=== PATIENT | female | born 1945 | race Caucasian/White ===

== ENCOUNTER 2021-06-26 19:22 | Inpatient (IN) | payer BC, OTHER ==
[~2021-06-26] VITALS: Ht 160 cm; Wt 99.0 kg
[2021-06-26] MEDS ORDERED: cloNIDine HCL 0.1 MG TAB PO ONE (20:15)
[2021-06-26 20:37] LABS: Basophils # (auto) 0.1 10 ^3/uL (0-0.2); Basophils % (auto) 0.9 % (0.0-2.0); Eosinophils # (auto) 0.1 10 ^3/uL (0-0.8); Eosinophils % (auto) 1.2 % (0.0-7.0); Hematocrit 39.2 % (36.0-46.0); Hemoglobin 13.3 g/dL (12.2-16.2); Lymphocytes # (auto) 1.5 10 ^3/uL (0.4-5.4); Lymphocytes % (auto) 22.3 % (10.0-50.0); Mean Corpuscular Hemoglobin 32.3 pg (28.0-32.0); Mean Corpuscular Hgb Conc. 33.9 g/dL (32.0-36.0); Mean Corpuscular Volume 95.3 fL (80.0-100.0); Monocytes # (auto) 0.6 10 ^3/uL (0-1.3); Monocytes % (auto) 8.6 % (0.0-12.0); Neutrophils # (auto) 4.6 10 ^3/uL (1.6-8.6); Nucleated Red Blood Cells % 0.2 %; Red Blood Cells 4.12 10^6/uL (4.0-5.20); Red Cell Distribution Width 14.2 % (11.8-14.3); White Blood Cell 6.9 10^3/uL (4.4-10.8)
[2021-06-26] MEDS ORDERED: ONDANSETRON HCL 4 MG/2 ML VIAL IV ONE (20:45)
[2021-06-26] MEDS ORDERED: PANTOPRAZOLE 40 MG/10 ML VIAL INJ IV ONE (20:45)
[2021-06-26] MEDS ORDERED: MORPHINE SULFATE 4 MG/ML SYR/VIAL IV ONE (20:45)
[2021-06-26 20:57] LABS: Albumin 3.7 g/dL (3.4-5.0); Calcium 9.1 mg/dL (8.5-10.1); Magnesium 2.2 mg/dL (1.6-2.6); Potassium 4.1 mmol/L (3.5-5.1)
[2021-06-26 21:00] LABS: Bilirubin, Total 0.4 mg/dL (0.2-1.0); Total Protein 7.1 g/dL (6.4-8.2)
[2021-06-26 21:38] LABS: INR 0.95 (0.9-1.15); Partial Thromboplastin Time 24.8 sec (23.6-33.0)
[2021-06-26 21:42] LABS: Lactic Acid w/Reflex 2.5 mmol/L (0.4-2.0)
[2021-06-26] MEDS ORDERED: SODIUM CHLORIDE 0.9% 500 ML IV ONE (23:15)
[2021-06-27] MEDS ORDERED: MORPHINE SULFATE 4 MG/ML SYR/VIAL IV PRN (01:15)
[2021-06-27] MEDS ORDERED: MORPHINE SULFATE INJECTION 2 MG/ML SYRG IV PRN (01:15)
[2021-06-27] MEDS ORDERED: DEXTROSE (50%) 50ML SYRG IV PRN (01:15)
[2021-06-27] MEDS ORDERED: NITROGLYCERIN 0.4 MG SL TAB SL PRN (01:15)
[2021-06-27] MEDS ORDERED: ONDANSETRON HCL 4 MG/2 ML VIAL IV PRN (01:15)
[2021-06-27] MEDS: SOD CHL 0.45% 1,000 ML IV SCH ×2 (02:35→15:39)
[2021-06-27] MEDS: InsuLIN REG 1unit/0.01ml Soln (100units/ml) SC SCH ×4 (07:00→21:52)
[2021-06-27] MEDS: ACCU-CHEK COMFORT CURVE STRIP VI SCH ×4 (07:13→21:42)
[2021-06-27 07:15] VITALS: BP 132/78
[2021-06-27 08:44] LABS: Urine Bacteria NONE SEEN /hpf (None Seen); Urine Blood Negative /uL (Negative); Urine Mucus FEW (None Seen); Urine Specific Gravity 1.027 (1.001-1.035); Urine WBC 4 /hpf (0 - 5)
[2021-06-27 09:00] VITALS: BP 118/72
[2021-06-27 11:06] LABS: Basophils # (auto) 0 10 ^3/uL (0-0.2); Basophils % (auto) 0.5 % (0.0-2.0); Eosinophils # (auto) 0.1 10 ^3/uL (0-0.8); Eosinophils % (auto) 1.4 % (0.0-7.0); Hematocrit 34.8 % (36.0-46.0); Hemoglobin 11.9 g/dL (12.2-16.2); Lymphocytes # (auto) 1.7 10 ^3/uL (0.4-5.4); Lymphocytes % (auto) 24.7 % (10.0-50.0); Mean Corpuscular Hemoglobin 33.5 pg (28.0-32.0); Mean Corpuscular Hgb Conc. 34.3 g/dL (32.0-36.0); Mean Corpuscular Volume 97.5 fL (80.0-100.0); Monocytes # (auto) 0.5 10 ^3/uL (0-1.3); Monocytes % (auto) 7.2 % (0.0-12.0); Neutrophils # (auto) 4.5 10 ^3/uL (1.6-8.6); Neutrophils % (auto) 66.2 % (37.0-80.0); Nucleated Red Blood Cells % 0.1 %; Red Blood Cells 3.57 10^6/uL (4.0-5.20); Red Cell Distribution Width 13.9 % (11.8-14.3); White Blood Cell 6.7 10^3/uL (4.4-10.8)
[2021-06-27 11:13] LABS: Albumin 3.3 g/dL (3.4-5.0); Calcium 8.6 mg/dL (8.5-10.1); Potassium 3.7 mmol/L (3.5-5.1)
[2021-06-27 11:18] LABS: BUN/Creatinine Ratio 20.8; Bilirubin, Total 0.4 mg/dL (0.2-1.0); Total Protein 6.1 g/dL (6.4-8.2)
[2021-06-27] MEDS: FAMOTIDINE (10MG/ML) 2ML VL IV SCH ×2 (12:17→21:42)
[2021-06-27 13:00] VITALS: BP 142/93
[2021-06-27] MEDS: ACETAMINOPHEN 325 MG TAB PO PRN ×2 (16:52→23:08)
[2021-06-27 17:00] VITALS: BP 126/81
[2021-06-27 22:00] VITALS: BP 148/76
[2021-06-27] MEDS: SUCRALFATE 1 GM/10 ML ORAL SUSP PO SCH (22:55)
[2021-06-28] MEDS: SOD CHL 0.45% 1,000 ML IV SCH ×2 (03:29→06:52)
[2021-06-28 05:00] VITALS: BP 131/73
[2021-06-28] MEDS: ACCU-CHEK COMFORT CURVE STRIP VI SCH ×4 (06:04→21:20)
[2021-06-28] MEDS: InsuLIN REG 1unit/0.01ml Soln (100units/ml) SC SCH ×4 (06:05→21:28)
[2021-06-28] MEDS: SUCRALFATE 1 GM/10 ML ORAL SUSP PO SCH ×4 (06:06→21:20)
[2021-06-28 06:56] LABS: Basophils # (auto) 0 10 ^3/uL (0-0.2); Basophils % (auto) 0.7 % (0.0-2.0); Eosinophils # (auto) 0.1 10 ^3/uL (0-0.8); Hematocrit 37.5 % (36.0-46.0); Hemoglobin 12.9 g/dL (12.2-16.2); Lymphocytes # (auto) 1.5 10 ^3/uL (0.4-5.4); Lymphocytes % (auto) 26.8 % (10.0-50.0); Mean Corpuscular Hemoglobin 33.3 pg (28.0-32.0); Mean Corpuscular Hgb Conc. 34.5 g/dL (32.0-36.0); Mean Corpuscular Volume 96.5 fL (80.0-100.0); Monocytes # (auto) 0.4 10 ^3/uL (0-1.3); Monocytes % (auto) 6.4 % (0.0-12.0); Neutrophils # (auto) 3.6 10 ^3/uL (1.6-8.6); Neutrophils % (auto) 64.1 % (37.0-80.0); Nucleated Red Blood Cells % 0.2 %; Red Blood Cells 3.89 10^6/uL (4.0-5.20); White Blood Cell 5.6 10^3/uL (4.4-10.8)
[2021-06-28 07:14] LABS: Albumin 3.4 g/dL (3.4-5.0); BUN/Creatinine Ratio 19.1; Calcium 8.8 mg/dL (8.5-10.1)
[2021-06-28 07:17] LABS: Bilirubin, Total 0.4 mg/dL (0.2-1.0); Total Protein 6.3 g/dL (6.4-8.2)
[2021-06-28 09:00] VITALS: BP 133/86
[2021-06-28] MEDS: FAMOTIDINE (10MG/ML) 2ML VL IV SCH ×2 (09:42→21:20)
[2021-06-28 12:59] VITALS: BP 146/84
[2021-06-28] MEDS ORDERED: MIDAZOLAM HCL 5 MG/ML-1ML VIAL ONE (14:15)
[2021-06-28] MEDS ORDERED: LIDOCAINE VISCOUS 2% 15ML UD ONE (14:15)
[2021-06-28] MEDS ORDERED: SODIUM CHLORIDE LOCK 10 ML ONE (14:15)
[2021-06-28] MEDS ORDERED: fentaNYL CITRATE 100 MCG/2 ML VL ONE (14:16)
[2021-06-28] MEDS ORDERED: diphenhdrAMINE HCL 50 MG/1 ML VL ONE (14:16)
[2021-06-28] MEDS: LEVOTHYROXINE SODIUM 50 MCG TAB PO ONE ×2 (16:14→17:16)
[2021-06-28 17:00] VITALS: BP_SYST 134; BP_SYST 182; BP_DIAS 76; BP_DIAS 84
[2021-06-28] MEDS: hydrALAZINE HCL 20 MG/ML VL IV PRN (21:32)
[2021-06-28 22:00] VITALS: BP 151/84
[2021-06-29] MEDS: HYDROcodone-ACET 5/325MG TAB PO PRN ×2 (01:38→23:41)
[2021-06-29] MEDS: SOD CHL 0.45% 1,000 ML IV SCH (02:35)
[2021-06-29 05:00] VITALS: BP 156/84
[2021-06-29] MEDS: hydrALAZINE HCL 20 MG/ML VL IV PRN ×3 (05:18→16:52)
[2021-06-29] MEDS: ACETAMINOPHEN 325 MG TAB PO PRN ×2 (05:25→18:39)
[2021-06-29] MEDS: SUCRALFATE 1 GM/10 ML ORAL SUSP PO SCH ×2 (06:04→11:39)
[2021-06-29] MEDS: LEVOTHYROXINE SODIUM 100 MCG TAB PO SCH (06:04)
[2021-06-29] MEDS: LEVOTHYROXINE SODIUM 25 MCG TAB PO SCH (06:05)
[2021-06-29] MEDS: ACCU-CHEK COMFORT CURVE STRIP VI SCH ×4 (06:05→21:52)
[2021-06-29] MEDS: LEVOTHYROXINE SODIUM 50 MCG TAB PO SCH (06:05)
[2021-06-29] MEDS: InsuLIN REG 1unit/0.01ml Soln (100units/ml) SC SCH ×4 (06:06→22:17)
[2021-06-29 09:00] VITALS: BP 159/86
[2021-06-29] MEDS: FAMOTIDINE (10MG/ML) 2ML VL IV SCH (09:49)
[2021-06-29 13:00] VITALS: BP 184/87
[2021-06-29] MEDS ORDERED: NIFEdipine ER 30 MG TAB PO ONE (16:30)
[2021-06-29] MEDS ORDERED: LISINOPRIL 20 MG TAB PO ONE (16:45)
[2021-06-29 17:00] VITALS: BP 213/92
[2021-06-29] MEDS ORDERED: LEVO150T10 PO (17:55)
[2021-06-29] MEDS ORDERED: GLIM-5 PO (17:55)
[2021-06-29] MEDS ORDERED: ASPI-498 PO (17:55)
[2021-06-29] MEDS ORDERED: ATOR20TA PO (17:55)
[2021-06-29] MEDS ORDERED: TRAM50TA2 PO (17:55)
[2021-06-29] MEDS ORDERED: OME20GT PO (17:55)
[2021-06-29] MEDS ORDERED: FLUT250M2 INH (17:55)
[2021-06-29 21:51] VITALS: BP 150/73
[2021-06-29] MEDS: PANTOPRAZOLE 40 MG/10 ML VIAL INJ IV SCH (21:52)
[2021-06-30 04:59] VITALS: BP 134/88
[2021-06-30] MEDS: ACCU-CHEK COMFORT CURVE STRIP VI SCH ×2 (06:19→11:48)
[2021-06-30] MEDS: InsuLIN REG 1unit/0.01ml Soln (100units/ml) SC SCH ×2 (06:24→11:48)
[2021-06-30] MEDS: LEVOTHYROXINE SODIUM 100 MCG TAB PO SCH (06:26)
[2021-06-30] MEDS: LEVOTHYROXINE SODIUM 25 MCG TAB PO SCH (06:27)
[2021-06-30] MEDS: LEVOTHYROXINE SODIUM 50 MCG TAB PO SCH (06:27)
[2021-06-30 06:36] LABS: Calcium 9.4 mg/dL (8.5-10.1); Magnesium 2.2 mg/dL (1.6-2.6); Potassium 3.4 mmol/L (3.5-5.1)
[2021-06-30 06:39] LABS: BUN/Creatinine Ratio 16.9
[2021-06-30 09:00] VITALS: BP 157/78
[2021-06-30] MEDS: PANTOPRAZOLE 40 MG/10 ML VIAL INJ IV SCH ×2 (09:59→10:00)
[2021-06-30] MEDS ORDERED: LISINOPRIL 20 MG TAB PO SCH (10:00)
[2021-06-30] MEDS ORDERED: LISI20TA28 PO (10:39)
[2021-06-30] MEDS ORDERED: PANT40TA2 PO (10:39)
[2021-06-30] MEDS ORDERED: LEVO175T2 PO (10:39)
[2021-06-30] MEDS ORDERED: POTASSIUM CHL 20 Meq TABLET PO ONE (10:45)
[2021-06-30 13:10] VITALS: BP 154/81
[2021-06-30 16:00] VITALS: BP 154/81
[2021-06-30] MEDS ORDERED: PANTOPRAZOLE 40 MG TAB PO SCH (22:00)
== END 2021-06-30 16:48 | disposition home or self-care (01) | DRG 392 ==
LOC: EDBD 19:22 → ER 19:22 → TELE 06-27 01:01 → TELE-CENTR 06-27 06:58 → CENTRAL 06-30 10:45
PROVIDERS: ADMIT Nurse Practitioner Family; ATTEND Internal Medicine
PROC: 0DB68ZX Excision of Stomach, Via Natural or Artificial Opening Endoscopic, Diagnostic (ICD-10-PCS; 2021-06-28)
PROC: 0DB48ZX Excision of Esophagogastric Junction, Via Natural or Artificial Opening Endoscopic, Diagnostic (ICD-10-PCS; 2021-06-28)
PROC: 0DB98ZX Excision of Duodenum, Via Natural or Artificial Opening Endoscopic, Diagnostic (ICD-10-PCS; principal; 2021-06-28 14:11)
DX: K29.70 Gastritis, unspecified, without bleeding (principal); J98.11 Atelectasis; R16.0 Hepatomegaly, not elsewhere classified; E11.65 Type 2 diabetes mellitus with hyperglycemia; I10 Essential (primary) hypertension; K76.0 Fatty (change of) liver, not elsewhere classified; K21.9 Gastro-esophageal reflux disease without esophagitis; E66.9 Obesity, unspecified; E03.9 Hypothyroidism, unspecified; R07.89 Other chest pain; Z20.822 Contact with and (suspected) exposure to COVID-19; K44.9 Diaphragmatic hernia without obstruction or gangrene; E78.5 Hyperlipidemia, unspecified; E87.6 Hypokalemia; I25.2 Old myocardial infarction; Z68.38 Body mass index [BMI] 38.0-38.9, adult; Z80.9 Family history of malignant neoplasm, unspecified; Z82.49 Family history of ischemic heart disease and other diseases of the circulatory system; Z83.3 Family history of diabetes mellitus; Z90.710 Acquired absence of both cervix and uterus; Z91.14 Patient's other noncompliance with medication regimen; Z90.49 Acquired absence of other specified parts of digestive tract
CPT/HCPCS: 36415; 43239; 71045; 74176; 80048; 80053; 80061; 81001; 82150; 82962; 83036; 83605; 83690; 83735; 84443; 84484; 85025; 85610; 85730; 86850; 86900; 86901; 87040; 87426; 93005; 93306; 96372; 96374; 96375; 97110; 97116; 97530; C9113; G0378; J1815; J2250; J2405; J3490

== ENCOUNTER 2022-10-01 16:50 | Emergency (ER) | payer BC ==
[~2022-10-01] VITALS: Ht 157.5 cm; Wt 85.9 kg
[~2022-10-01 16:50] MED LIST: ATOR20TA PO; FLUT250M2 INH; GLIM-5 PO; PANT40TA2 PO; TRAM50TA2 PO
[2022-10-01 18:43] VITALS: BP 151/67
[2022-10-01 19:28] LABS: Basophils # (auto) 0.1 10 ^3/uL (0-0.2); Basophils % (auto) 0.6 % (0.0-2.0); Eosinophils # (auto) 0.1 10 ^3/uL (0-0.8); Eosinophils % (auto) 1.1 % (0.0-7.0); Hematocrit 43.4 % (36.0-46.0); Hemoglobin 14.7 g/dL (12.2-16.2); Lymphocytes % (auto) 25.3 % (10.0-50.0); Mean Corpuscular Hemoglobin 30.9 pg (28.0-32.0); Mean Corpuscular Hgb Conc. 33.8 g/dL (32.0-36.0); Mean Corpuscular Volume 91.3 fL (80.0-100.0); Monocytes # (auto) 0.6 10 ^3/uL (0-1.3); Monocytes % (auto) 7.8 % (0.0-12.0); Neutrophils # (auto) 5.2 10 ^3/uL (1.6-8.6); Neutrophils % (auto) 65.2 % (37.0-80.0); Nucleated Red Blood Cells % 0.1 %; Red Blood Cells 4.75 10^6/uL (4.0-5.20); Red Cell Distribution Width 13.2 % (11.8-14.3)
[2022-10-01 19:56] LABS: Urine Bacteria NONE SEEN /hpf (None Seen); Urine Blood Negative /uL (Negative); Urine Specific Gravity 1.037 (1.001-1.035); Urine WBC 3 /hpf (0 - 5)
== END 2022-10-01 20:19 | disposition home or self-care (01) ==
LOC: ER 16:54
DX: K64.9 Unspecified hemorrhoids (principal); I10 Essential (primary) hypertension; E11.9 Type 2 diabetes mellitus without complications; E78.5 Hyperlipidemia, unspecified; E03.9 Hypothyroidism, unspecified; Z79.899 Other long term (current) drug therapy
CPT/HCPCS: 36415; 81001; 85025

== ENCOUNTER 2022-12-30 08:21 | Inpatient (IN) | payer BC, OTHER ==
[~2022-12-30] VITALS: Ht 160 cm; Wt 90.1 kg
[2022-12-30] MEDS ORDERED: PANTOPRAZOLE 40 MG/10 ML VIAL INJ IV ONE (09:15)
[2022-12-30 09:21] LABS: Basophils # (auto) 0.1 10 ^3/uL (0-0.2); Basophils % (auto) 0.7 % (0.0-2.0); Eosinophils # (auto) 0.1 10 ^3/uL (0-0.8); Hematocrit 43.7 % (36.0-46.0); Hemoglobin 14.8 g/dL (12.2-16.2); Lymphocytes # (auto) 1.8 10 ^3/uL (0.4-5.4); Lymphocytes % (auto) 20.6 % (10.0-50.0); Mean Corpuscular Hemoglobin 30.6 pg (28.0-32.0); Mean Corpuscular Hgb Conc. 33.9 g/dL (32.0-36.0); Mean Corpuscular Volume 90.4 fL (80.0-100.0); Monocytes # (auto) 0.8 10 ^3/uL (0-1.3); Monocytes % (auto) 8.9 % (0.0-12.0); Neutrophils # (auto) 6.1 10 ^3/uL (1.6-8.6); Neutrophils % (auto) 68.8 % (37.0-80.0); Red Blood Cells 4.83 10^6/uL (4.0-5.20); Red Cell Distribution Width 13.7 % (11.8-14.3); White Blood Cell 8.9 10^3/uL (4.4-10.8)
[2022-12-30 09:36] LABS: INR 0.93 (0.9-1.15); Partial Thromboplastin Time 27.6 sec (24.6-33.4)
[2022-12-30 10:03] LABS: Albumin 4.1 g/dL (3.4-5.0); Calcium 9.3 mg/dL (8.5-10.1); Potassium 3.5 mmol/L (3.5-5.1)
[2022-12-30 10:07] LABS: BUN/Creatinine Ratio 25.4 (10.0-20.0); Bilirubin, Total 0.5 mg/dL (0.2-1.0); Total Protein 7.2 g/dL (6.4-8.2)
[2022-12-30] MEDS ORDERED: ACETAMINOPHEN 325 MG TAB PO ONE (13:30)
[2022-12-30 14:50] LABS: Urine Bacteria NONE SEEN /hpf (None Seen); Urine Blood 3+ /uL (Negative); Urine WBC 9 /hpf (0 - 5)
[2022-12-30] MEDS ORDERED: MORPHINE SULFATE INJ 2 MG/ml SYRG IV PRN (15:00)
[2022-12-30] MEDS ORDERED: DEXTROSE (50%) 50ML SYRG IV PRN (15:00)
[2022-12-30] MEDS ORDERED: ONDANSETRON HCL 4 MG/2 ML VIAL IV PRN (15:00)
[2022-12-30 18:15] LABS: Hematocrit 42.8 % (36.0-46.0); Hemoglobin 14.3 g/dL (12.2-16.2)
[2022-12-30] MEDS: ACCU-CHEK COMFORT CURVE STRIP VI SCH ×2 (20:33→23:25)
[2022-12-30] MEDS: InsuLIN REG 1unit/0.01ml Soln (100units/ml) SC SCH ×2 (20:33→23:23)
[2022-12-30] MEDS: HYDROcodone-ACET 5/325MG TAB PO PRN (20:41)
[2022-12-30] MEDS: ATORVASTATIN 20 MG TAB PO SCH (23:22)
[2022-12-30] MEDS: SODIUM CHLORIDE 0.9% 1,000 ML IV SCH (23:24)
[2022-12-31 00:44] LABS: Hematocrit 36.7 % (36.0-46.0); Hemoglobin 12.6 g/dL (12.2-16.2)
[2022-12-31] MEDS: SODIUM CHLORIDE 0.9% 1,000 ML IV SCH ×3 (01:38→21:00)
[2022-12-31] MEDS: HYDROcodone-ACET 5/325MG TAB PO PRN (03:22)
[2022-12-31] MEDS: InsuLIN REG 1unit/0.01ml Soln (100units/ml) SC SCH ×4 (06:41→21:53)
[2022-12-31] MEDS: ACCU-CHEK COMFORT CURVE STRIP VI SCH ×4 (06:43→21:54)
[2022-12-31 06:44] LABS: Basophils # (auto) 0 10 ^3/uL (0-0.2); Basophils % (auto) 0.4 % (0.0-2.0); Eosinophils # (auto) 0.1 10 ^3/uL (0-0.8); Eosinophils % (auto) 1.6 % (0.0-7.0); Hematocrit 36.3 % (36.0-46.0); Hemoglobin 12.4 g/dL (12.2-16.2); Lymphocytes # (auto) 1.6 10 ^3/uL (0.4-5.4); Lymphocytes % (auto) 26.7 % (10.0-50.0); Mean Corpuscular Hemoglobin 30.7 pg (28.0-32.0); Mean Corpuscular Hgb Conc. 34.1 g/dL (32.0-36.0); Mean Corpuscular Volume 89.8 fL (80.0-100.0); Monocytes # (auto) 0.6 10 ^3/uL (0-1.3); Monocytes % (auto) 10.5 % (0.0-12.0); Neutrophils # (auto) 3.7 10 ^3/uL (1.6-8.6); Neutrophils % (auto) 60.8 % (37.0-80.0); Nucleated Red Blood Cells % 0.1 %; Potassium 3.3 mmol/L (3.5-5.1); Red Blood Cells 4.04 10^6/uL (4.0-5.20); Red Cell Distribution Width 13.5 % (11.8-14.3)
[2022-12-31 06:54] LABS: Albumin 3.4 g/dL (3.4-5.0); BUN/Creatinine Ratio 25.5 (10.0-20.0); Bilirubin, Total 0.5 mg/dL (0.2-1.0); Total Protein 5.9 g/dL (6.4-8.2)
[2022-12-31 10:00] VITALS: BP 117/87
[2022-12-31] MEDS: PANTOPRAZOLE 40 MG/10 ML VIAL INJ IV SCH (10:04)
[2022-12-31 10:25] LABS: Hematocrit 39.4 % (36.0-46.0); Hemoglobin 13.4 g/dL (12.2-16.2)
[2022-12-31 11:19] VITALS: BP 145/70
[2022-12-31 13:27] VITALS: BP 145/70
[2022-12-31 16:36] LABS: Hematocrit 35.9 % (36.0-46.0); Hemoglobin 12.5 g/dL (12.2-16.2)
[2022-12-31 17:00] VITALS: BP 140/66
[2022-12-31] MEDS: ATORVASTATIN 20 MG TAB PO SCH (21:50)
[2022-12-31 22:00] VITALS: BP 133/62
[2023-01-01] VITALS (8 sets, daily range): BP systolic 112–173; BP diastolic 52–87
[2023-01-01] MEDS: SODIUM CHLORIDE 0.9% 1,000 ML IV SCH ×2 (04:32→16:40)
[2023-01-01] MEDS: InsuLIN REG 1unit/0.01ml Soln (100units/ml) SC SCH ×4 (06:26→21:24)
[2023-01-01] MEDS: ACCU-CHEK COMFORT CURVE STRIP VI SCH ×4 (06:26→21:24)
[2023-01-01] MEDS: PANTOPRAZOLE 40 MG/10 ML VIAL INJ IV SCH (10:51)
[2023-01-01] MEDS ORDERED: GOLYTELY 4L KIT PO ONE (12:45)
[2023-01-01] MEDS ORDERED: cloNIDine HCL 0.1 MG TAB PO ONE (15:15)
[2023-01-01] MEDS: HYDROcodone-ACET 5/325MG TAB PO PRN (15:46)
[2023-01-01] MEDS ORDERED: fentaNYL CITRATE 100 MCG/2 ML VL ONE (16:35)
[2023-01-01] MEDS ORDERED: FLUMAZENIL 0.1 MG/ML INJ 10ML MDV IV ONE (16:35)
[2023-01-01] MEDS ORDERED: NALOXONE HCL 0.4 MG/ML VIAL ONE (16:35)
[2023-01-01] MEDS ORDERED: diphenhdrAMINE HCL 50 MG/1 ML VL ONE (16:37)
[2023-01-01] MEDS: MIDAZOLAM HCL 2MG/2ML 2ml VIAL (1mg/ml) ONE ×2 (17:23→17:31)
[2023-01-01] MEDS: ATORVASTATIN 20 MG TAB PO SCH (21:20)
[2023-01-02] MEDS: SODIUM CHLORIDE 0.9% 1,000 ML IV SCH ×3 (01:57→23:00)
[2023-01-02 05:00] VITALS: BP 113/58
[2023-01-02] MEDS: ACCU-CHEK COMFORT CURVE STRIP VI SCH ×4 (06:34→21:29)
[2023-01-02] MEDS: InsuLIN REG 1unit/0.01ml Soln (100units/ml) SC SCH ×4 (06:34→21:27)
[2023-01-02 08:00] VITALS: BP 141/61
[2023-01-02] MEDS: HYDROcodone-ACET 5/325MG TAB PO PRN (08:16)
[2023-01-02] MEDS: PANTOPRAZOLE 40 MG/10 ML VIAL INJ IV SCH (08:17)
[2023-01-02 09:00] VITALS: BP 141/61
[2023-01-02 13:00] VITALS: BP 105/45
[2023-01-02 17:00] VITALS: BP 149/70
[2023-01-02] MEDS: ATORVASTATIN 20 MG TAB PO SCH (21:26)
[2023-01-02 22:00] VITALS: BP 157/69
[2023-01-03 05:00] VITALS: BP 123/60
[2023-01-03] MEDS: InsuLIN REG 1unit/0.01ml Soln (100units/ml) SC SCH ×2 (06:04→11:30)
[2023-01-03] MEDS: ACCU-CHEK COMFORT CURVE STRIP VI SCH ×2 (06:08→11:30)
[2023-01-03] MEDS: SODIUM CHLORIDE 0.9% 1,000 ML IV SCH (09:00)
[2023-01-03] MEDS: PANTOPRAZOLE 40 MG/10 ML VIAL INJ IV SCH (09:34)
== END 2023-01-03 11:55 | disposition home or self-care (01) | DRG 374 ==
LOC: ER 08:21 → OVERFLOW 15:01 → CENTRAL 12-31 10:42
PROVIDERS: ADMIT Nurse Practitioner Family; ATTEND Family Medicine
PROC: 0DBP8ZX Excision of Rectum, Via Natural or Artificial Opening Endoscopic, Diagnostic (ICD-10-PCS; principal; 2023-01-01 17:16)
DX: C20 Malignant neoplasm of rectum (principal); K57.31 Diverticulosis of large intestine without perforation or abscess with bleeding; E89.0 Postprocedural hypothyroidism; I10 Essential (primary) hypertension; K76.0 Fatty (change of) liver, not elsewhere classified; N20.0 Calculus of kidney; D17.71 Benign lipomatous neoplasm of kidney; E11.9 Type 2 diabetes mellitus without complications; E78.00 Pure hypercholesterolemia, unspecified; Z90.49 Acquired absence of other specified parts of digestive tract; Z82.49 Family history of ischemic heart disease and other diseases of the circulatory system; Z83.3 Family history of diabetes mellitus; Z85.42 Personal history of malignant neoplasm of other parts of uterus; Z87.442 Personal history of urinary calculi; Z90.710 Acquired absence of both cervix and uterus; Z80.3 Family history of malignant neoplasm of breast
CPT/HCPCS: 36415; 45380; 71045; 74176; 80053; 81001; 82962; 83036; 83690; 85014; 85018; 85025; 85610; 85730; 86850; 86900; 86901; 93005; 96374; C9113; G0378; J1815; J2250

== ENCOUNTER 2023-01-17 08:50 | Emergency (ER) | payer BC, OTHER | END 2023-01-17 09:50 | disposition left against medical advice (07) | LOC: ER 08:50 | DX: K62.5 Hemorrhage of anus and rectum (principal); Z53.21 Procedure and treatment not carried out due to patient leaving prior to being seen by health care provider ==

== ENCOUNTER 2023-12-12 11:05 | Inpatient (IN) | payer OTHER ==
[~2023-12-12] VITALS: Ht 154.9 cm; Wt 98.0 kg
[~2023-12-12 11:05] MED LIST changes: +GLIM-38 PO; -GLIM-5 PO
[2023-12-12 12:08] LABS: Hematocrit 33.5 % (36.0-46.0); Hemoglobin 11.5 g/dL (12.2-16.2); Mean Corpuscular Hemoglobin 31.6 pg (28.0-32.0); Mean Corpuscular Hgb Conc. 34.3 g/dL (32.0-36.0); Mean Corpuscular Volume 92.2 fL (80.0-100.0); Red Blood Cells 3.63 10^6/uL (4.0-5.20); Red Cell Distribution Width 14.9 % (11.8-14.3); White Blood Cell 3.4 10^3/uL (4.4-10.8)
[2023-12-12 12:13] LABS: Basophils % (manual) 0 (0.0-2.0); Blast Cells 0; Eosinophils % (manual) 0 (0-7); Metamyelocytes % 0; Myelocytes % 0; Promyelocytes % 0; Reactive Lymphocytes 0
[2023-12-12 12:15] LABS: Chloride 104 mmol/L (98-107); Potassium 3.2 mmol/L (3.5-5.1); Sodium 138 mmol/L (136-145)
[2023-12-12 12:16] LABS: Anion Gap 8 (5-15); Carbon Dioxide 26 mmol/L (20-30)
[2023-12-12 12:17] LABS: Calcium 8.8 mg/dL (8.5-10.1)
[2023-12-12 12:22] LABS: BUN/Creatinine Ratio 16.7 (10.0-20.0); Blood Urea Nitrogen 10 mg/dL (9-23); Glucose 136 mg/dL (74-106)
[2023-12-12 13:36] LABS: Band Neutrophils % (manual) 8; Lymphocytes % (manual) 5 (10.0-50.0)
[2023-12-12 13:37] LABS: Monocytes % (manual) 21 (0-12); Platelet Estimate Adequate; RBC Morphology Normal
[2023-12-12] MEDS ORDERED: ONDANSETRON HCL 4 MG/2 ML VIAL IV PRN (14:45)
[2023-12-12] MEDS ORDERED: DOCUSATE SOD 100 MG CAP PO PRN (14:45)
[2023-12-12] MEDS ORDERED: MORPHINE SULFATE INJ 2 MG/ml SYRG IV PRN (14:45)
[2023-12-12] MEDS ORDERED: NITROGLYCERIN 0.4 MG SL TAB SL PRN (14:45)
[2023-12-12] MEDS ORDERED: HYDROcodone-ACET 5/325MG TAB PO PRN (14:45)
[2023-12-12] MEDS ORDERED: DEXTROSE (50%) 50ML SYRG IV PRN (14:45)
[2023-12-12] MEDS ORDERED: LISI20TA56 PO (14:46)
[2023-12-12] MEDS ORDERED: LEVO125T7 PO (14:46)
[2023-12-12] MEDS ORDERED: HYDR12.55 PO (14:46)
[2023-12-12] MEDS ORDERED: METF-1145 PO (14:46)
[2023-12-12] MEDS ORDERED: EMPA1TAB3 PO (14:46)
[2023-12-12] MEDS ORDERED: ATOR20TA50 PO (14:46)
[2023-12-12 18:41] LABS: Urine Bacteria None Seen /hpf (None Seen)
[2023-12-12 18:49] LABS: Urine Blood 1+ /uL (Negative); Urine Clarity Turbid (Clear); Urine Color Colorless (Yellow); Urine Mucus FEW (None Seen); Urine Protein, UAD TRACE (Negative); Urine Specific Gravity 1.034 (1.001-1.035); Urine Urobilinogen Normal (Negative); Urine WBC 141 /hpf (0 - 5)
[2023-12-12] MEDS: PANTOPRAZOLE 40 MG/10 ML VIAL INJ IV ONE (20:05)
[2023-12-12] MEDS: POTASSIUM EFFERVESENT TAB 25 MEQ PO ONE (20:05)
[2023-12-12] MEDS: cefTRIAXone 1GM/50ML D5W 50 ML IV ONE (20:06)
[2023-12-12] MEDS: SODIUM CHLORIDE 0.9% 1,000 ML IV ONE ×2 (20:10→20:31)
[2023-12-12] MEDS: InsuLIN REG 1unit/0.01ml Soln (100units/ml) SC SCH (20:13)
[2023-12-12] MEDS: ACCU-CHEK COMFORT CURVE STRIP VI SCH (20:13)
[2023-12-12 20:21] VITALS: PULSE 75; RESP 16; O2SAT 93
[2023-12-12] MEDS: MORPHINE SULFATE INJ 2 MG/ml SYRG IV PRN (23:04)
[2023-12-13] VITALS (9 sets, daily range): BP systolic 95–140; BP diastolic 45–64; PULSE 59–71; RESP 16–18; TEMP 97.4–98.6; O2SAT 90–98
[2023-12-13] MEDS ORDERED: GABA-1308 PO (04:00)
[2023-12-13 06:04] LABS: Hematocrit 31.1 % (36.0-46.0); Hemoglobin 10.6 g/dL (12.2-16.2); Mean Corpuscular Hemoglobin 31.7 pg (28.0-32.0); Mean Corpuscular Volume 93.2 fL (80.0-100.0); Red Blood Cells 3.34 10^6/uL (4.0-5.20); White Blood Cell 3.2 10^3/uL (4.4-10.8)
[2023-12-13 06:18] LABS: Alanine Aminotransferase 15 U/L (7-40); Albumin 3.4 g/dL (3.2-4.8); Alkaline Phosphatase 96 U/L (46-116); Anion Gap 11 (5-15); Aspartate Aminotransferase 20 U/L (13-40); Bilirubin, Total 0.4 mg/dL (0.2-1.0); Calcium 8.4 mg/dL (8.5-10.1); Carbon Dioxide 22 mmol/L (20-30); Chloride 106 mmol/L (98-107); Glucose 99 mg/dL (74-106); Potassium 2.7 mmol/L (3.5-5.1); Sodium 139 mmol/L (136-145); Total Protein 5.2 g/dL (5.7-8.2)
[2023-12-13 06:19] LABS: BUN/Creatinine Ratio 10.9 (10.0-20.0); Blood Urea Nitrogen < 5 mg/dL (9-23)
[2023-12-13 06:23] LABS: Red Cell Distribution Width 23.9 % (11.8-14.3)
[2023-12-13 06:24] LABS: Band Neutrophils % (manual) 0; Basophils % (manual) 0 (0.0-2.0); Blast Cells 0; Metamyelocytes % 0; Myelocytes % 0; Promyelocytes % 0; Reactive Lymphocytes 0
[2023-12-13] MEDS: LEVOTHYROXINE SODIUM 100 MCG TAB PO SCH (06:44)
[2023-12-13] MEDS: LEVOTHYROXINE SODIUM 25 MCG TAB PO SCH (06:55)
[2023-12-13 08:59] LABS: Eosinophils % (manual) 1 (0-7); Lymphocytes % (manual) 5 (10.0-50.0); Monocytes % (manual) 19 (0-12)
[2023-12-13 09:00] LABS: Platelet Estimate Adequate
[2023-12-13] MEDS: cefTRIAXone 1GM/50ML D5W 50 ML IV SCH (10:00)
[2023-12-13] MEDS: PANTOPRAZOLE 40 MG/10 ML VIAL INJ IV SCH (10:02)
[2023-12-13] MEDS: ATORVASTATIN 20 MG TAB PO SCH (10:03)
[2023-12-13] MEDS: LISINOPRIL 20 MG TAB PO SCH (10:04)
[2023-12-13] MEDS: hydroCHLOROthiazide 25 MG TAB PO SCH (10:04)
[2023-12-13] MEDS: ACETAMINOPHEN 325 MG TAB PO PRN (10:15)
[2023-12-13] MEDS: SOD CHL 0.9%/ KCL 40MEQ 1,000 ML IV SCH (10:30)
[2023-12-13] MEDS: metroNIDAZOLE 500MG/100ML 100 ML IV SCH (14:00)
[2023-12-14] VITALS (7 sets, daily range): BP systolic 114–141; BP diastolic 53–69; PULSE 55–75; RESP 16–19; TEMP 97.6–98.2; O2SAT 90–95
[2023-12-14 11:48] LABS: Hematocrit 31.7 % (36.0-46.0); Hemoglobin 10.6 g/dL (12.2-16.2); Mean Corpuscular Hgb Conc. 33.5 g/dL (32.0-36.0); Mean Corpuscular Volume 92.8 fL (80.0-100.0); Red Blood Cells 3.42 10^6/uL (4.0-5.20); White Blood Cell 2.5 10^3/uL (4.4-10.8)
[2023-12-14 11:53] LABS: Basophils % (manual) 0 (0.0-2.0); Blast Cells 0; Metamyelocytes % 0; Myelocytes % 0; Promyelocytes % 0
[2023-12-14 12:04] LABS: Chloride 108 mmol/L (98-107); Potassium 3.4 mmol/L (3.5-5.1); Sodium 141 mmol/L (136-145)
[2023-12-14 12:05] LABS: Anion Gap 5 (5-15); Carbon Dioxide 28 mmol/L (20-30)
[2023-12-14 12:10] LABS: Glucose 150 mg/dL (74-106)
[2023-12-14 12:11] LABS: BUN/Creatinine Ratio 14.5 (10.0-20.0); Blood Urea Nitrogen 8 mg/dL (9-23)
[2023-12-14 12:30] LABS: Magnesium 1.7 mg/dL (1.6-2.6)
[2023-12-14 14:24] LABS: Anisocytosis Slight; Band Neutrophils % (manual) 11; Eosinophils % (manual) 1 (0-7); Lymphocytes % (manual) 10 (10.0-50.0); Monocytes % (manual) 7 (0-12); Reactive Lymphocytes 3
[2023-12-14 14:25] LABS: Platelet Estimate Adequate
[2023-12-15] VITALS (8 sets, daily range): BP systolic 108–137; BP diastolic 63–95; PULSE 60–73; RESP 16–19; TEMP 97.5–98.4; O2SAT 92–95
[2023-12-15] MEDS: LOPERAMIDE HCL 2 MG CAP/TAB PO PRN (09:07)
[2023-12-15] MEDS: CHOLESTYRAMINE 4 GM POWDER GT SCH (11:09)
[2023-12-15] MEDS: FLUCONAZOLE 100 MG TAB PO ONE (15:09)
[2023-12-16 01:00] VITALS: BP 129/66; PULSE 62; RESP 18; TEMP 97.5; O2SAT 94
[2023-12-16 05:00] VITALS: BP 139/76; PULSE 61; RESP 18; TEMP 97.8; O2SAT 93
[2023-12-16 06:26] LABS: Anion Gap 9 (5-15); Carbon Dioxide 22 mmol/L (20-30); Chloride 111 mmol/L (98-107); Potassium 4.2 mmol/L (3.5-5.1); Sodium 142 mmol/L (136-145)
[2023-12-16 06:27] LABS: Calcium 9.3 mg/dL (8.5-10.1)
[2023-12-16 06:32] LABS: BUN/Creatinine Ratio 10.2 (10.0-20.0); Blood Urea Nitrogen < 5 mg/dL (9-23); Glucose 113 mg/dL (74-106)
[2023-12-16 08:00] VITALS: BP 140/71; PULSE 58; RESP 16; RESP 19; TEMP 98.3; O2SAT 92; O2SAT 97
[2023-12-16] MEDS ORDERED: SOD CHL 0.9%/ KCL 40MEQ 1,000 ML IV SCH (11:00)
[2023-12-16] MEDS ORDERED: LOP2C PO (11:21)
[2023-12-16] MEDS ORDERED: CHL4PW GT (11:21)
[2023-12-16] MEDS ORDERED: METR-344 PO (11:22)
[2023-12-16] MEDS ORDERED: LEVO500T91 PO (11:22)
[2023-12-16 12:00] VITALS: BP 148/92; PULSE 68; RESP 18; TEMP 97.8; O2SAT 92
[2023-12-16 12:02] VITALS: BP 138/90; PULSE 68; RESP 18; TEMP 36.8; O2SAT 92
== END 2023-12-16 14:50 | disposition home or self-care (01) | DRG 392 ==
LOC: ER 11:05 → TELE 14:45 → TELE-EAST 22:02 → EAST 12-14 12:34
PROVIDERS: ADMIT Nurse Practitioner Family; ATTEND Nurse Practitioner Acute Care
DX: K52.9 Noninfective gastroenteritis and colitis, unspecified (principal); E11.9 Type 2 diabetes mellitus without complications; E78.5 Hyperlipidemia, unspecified; E87.6 Hypokalemia; I10 Essential (primary) hypertension; D72.819 Decreased white blood cell count, unspecified; E66.9 Obesity, unspecified; E03.9 Hypothyroidism, unspecified; Z90.49 Acquired absence of other specified parts of digestive tract; Z85.038 Personal history of other malignant neoplasm of large intestine; Z79.899 Other long term (current) drug therapy; Z83.3 Family history of diabetes mellitus; Z82.49 Family history of ischemic heart disease and other diseases of the circulatory system; Z85.42 Personal history of malignant neoplasm of other parts of uterus; Z86.73 Personal history of transient ischemic attack (TIA), and cerebral infarction without residual deficits; Z68.36 Body mass index [BMI] 36.0-36.9, adult
CPT/HCPCS: 36415; 71045; 71046; 74176; 80048; 80053; 81001; 82378; 82962; 83735; 84443; 84484; 85007; 85027; 87045; 87086; 87088; 87186; 87427; 87493; 93005; 97163; 99291; C9113; G0378; J1815; J3490

== ENCOUNTER 2024-09-29 23:12 | Emergency (ER) | payer OTHER ==
[~2024-09-29] VITALS: Ht 160 cm; Wt 72.7 kg
[~2024-09-29 23:12] MED LIST changes: -ATOR20TA PO; +ATOR20TA50 PO; +BACL5TAB2 PO; +CHL4PW GT; +EMPA1TAB3 PO; +GABA-1308 PO; -GLIM-38 PO; +HYDR12.55 PO; +LEVO500T91 PO; +LEVO50TA7 PO; +LISI20TA56 PO; +LOPE2CAP16 PO; +METF-1145 PO; +POM; +TAMS0.4C39 PO; -TRAM50TA2 PO
--- NOTE | 2024-09-29 23:44 | ED.PDOC ---
GI ASSESSMENT HPI Comments 79-year-old female came to emergency room via EMS for nausea and vomiting. Patient has history of hypertension, diabetes, and colon cancer. For the past hour, has been having epigastric abdominal constant pain, associated bouts of nausea vomiting and diarrhea. Patient started becoming weak and dizzy, patient was given Zofran by paramedics while en route to the ER. Chief Complaint: Nausea/Vomiting Time Seen by MD: 23:43 Primary Care Provider: BAKARI Reviewed Notes: Nurses Notes Allergies: Coded Allergies: NO KNOWN ALLERGIES (Unverified , 06/26/21) Home Meds Active Scripts Tamsulosin Hcl (Tamsulosin Hcl) 0.4 Mg Cap, 1 CAP PO DAILY, #30 CAP 0 Refills Prov:ANY KHAN MD 09/20/24 Baclofen (Baclofen) 5 Mg Tab, 5 MG PO HS for 4 Days, #4 TAB 0 Refills Prov:ANY KHAN MD 09/20/24 Levofloxacin Hemihydrate (LEVAQUIN 500 MG) 500 Mg Tab, 1 TAB PO DAILY for 7 Days, #7 TAB Prov:DOUGLAS TINOCO RAND SEWER 12/16/23 Loperamide Hcl (Imodium) 2 Mg Cp, 2 MG PO PRN PRN for 7 Days, #14 CAP Prov:DOUGLAS TINOCO RAND SEWER 12/16/23 Cholestyramine (QUESTRAN POWDER) 4 Gm Pw, 4 GM GT DAILY@11 for 7 Days, #7 POW Stop when BMs are regular Prov:DOUGLAS TINOCO RAND SEWER 12/16/23 Pantoprazole Sodium Sesquihydr (Protonix) 40 Mg Tab, 40 MG PO BID for 30 Days, #60 TAB Prov:YEFRI BAÑUELOS MD 06/30/21 Reported Medications Levothyroxine Sodium (Levothyroxine Sodium) 50 Mcg Tab, 75 MCG PO QAM for 30 Days, MCG 09/20/24 Patients Own Medication (PATIENTS OWN MEDICATION) . PTS OWN MED-OBTAIN FROM PT AND SEND TO RX DRUG: FREQ: RX# EXP: DATE DISP: TECH: RPH: 09/20/24 Gabapentin (Gabapentin) 100 Mg Cap, 100 MG PO HS for 30 Days, MG 12/13/23 Lisinopril (Lisinopril) 20 Mg Tab, 1 TAB PO DAILY 12/12/23 Empagliflozin (Jardiance) 25 Mg Tab, 1 TAB PO DAILY 12/12/23 Atorvastatin Calcium (ATORVASTATIN CALCIUM) 20 Mg Tab, 1 TAB PO DAILY 12/12/23 Hydrochlorothiazide (Hydrochlorothiazide) 12.5 Mg Tab, 1 TAB PO DAILY 12/12/23 Metformin Hydrochloride (Metformin Hcl Er) 500 Mg Tab, 1 TAB PO BID 12/12/23 Fluticasone-Salmeterol (Advair Diskus 250/50) 1 Puff Ih, 1 PUFF INH BID PRN for SHORTNESS OF BREATH 06/29/21 Information Source: Patient, Emergency Med Personnel Mode of Arrival: EMS Timing: Hours Duration: Since onset Prehospital treatment: None Quality: Aching, Cramping Vomitus: Watery Stool: Loose, Watery Severity: Moderate Recent: Possible spoiled food Recent Hx of: None Pain Location: Epigastric Associated sign and symptoms: Nausea, Vomiting, Diarrhea, Abdominal Pain Past Medical History PAST MEDICAL HISTORY: Cancer (Colorectal cancer), DM, High Lipids, HTN, Kidney Stones, Thyroid Surgical History: Appendectomy, Cholecystectomy, Hernia Repair, Hysterectomy, Thyroidectomy, Tonsillectomy LOAN AUDITOR History: No Pertinent LOAN AUDITOR History Family History Family History: Family hx of DM, Family hx of Cancer, Family hx of heart stan, Family hx of HTN Social History Smoker: Non-Smoker Alcohol: Denies ETOH Use Drugs: Denies Drug Use Lives In: Home Constitutional: denies: chills, diaphoresis, fatigue, fever, malaise, sweats, weakness, others EENTM: denies: blurred vision, double vision, ear bleeding, ear discharge, ear drainage, ear pain, ear ringing, eye pain, eye redness, hearing loss, mouth pain, mouth swelling, nasal discharge, nose bleeding, nose congestion, nose pain, photophobia, tearing, throat pain, throat swelling, voice changes, others Respiratory: denies: cough, hemoptysis, orthopnea, SOB at rest, shortness of breath, SOB with excertion, stridor, wheezing, others Cardiovascular: denies: chest pain, dizzy spells, diaphoresis, Dyspnea on exertion, edema, irregular heart beat, left arm pain, lightheadedness, palpitations, PND, syncope, others Gastrointestinal: reports: abdominal pain, diarrhea, nausea, vomiting; denies: abdomen distended, blood streaked bowels, constipated, dysphagia, difficulty swallowing, hematemesis, melena, poor appetite, poor fluid intake, rectal bleeding, rectal pain, others Genitourinary: denies: abnormal vagina bleeding, burning, dyspareunia, dysuria, flank pain, frequency, hematuria, incontinence, pain, , vagina discharge, urgency, others Neurological: denies: dizziness, fainting, headache, left sided numbness, left sided weakness, numbness, paresthesia, pre-existing deficit, right sided numbness, right sided weakness, seizure, speech problems, tingling, tremors, weakness, others Musculoskeletal: denies: back pain, gout, joint pain, joint swelling, muscle pain, muscle stiffness, neck pain, others Integumetry: denies: bruises, change in color, change in hair/nails, dryness, laceration, lesions, lumps, rash, wounds, others Allergic/Immunocompromised: denies: Difficulty Healing, Frequent Infections, Hives, Itching, others Hematologic/Lymphatic: denies: anemia, blood clots, easy bleeding, easy bruising, swollen glands, others Physical Exam General Appearance: Mild Distress, Normal HEENT: Normal ENT Inspection, Pharynx Normal, TMs Normal Neck: Full Range of Motion, Non-Tender, Normal, Normal Inspection Respiratory: Chest Non-Tender, Lungs Clear, No Accessory Muscle Use, No Respiratory Distress, Normal Breath Sounds Cardiovascular: No Edema, No JVD, No Murmur, No Gallop, Normal Peripheral Pulses, Regular Rate/Rhythm Breast Exam: Deferred Gastrointestinal: Diffuse, No Organomegaly, No Pulsatile Mass, Normal Bowel S ounds, Soft, Tenderness Genitalia: Deferred Pelvic: Deferred Rectal: Deferred Extremities: No calf tenderness, Normal capillary refill, Normal inspection, Normal range of motion, Non-tender, No pedal edema Musculoskeletal : Apperance: Normal Neurologic: Alert, engineer intern II-XII nml as Tested, No Motor Deficits, Normal Affect, Normal Mood, No Sensory Deficits Cerebellar Function: Normal Reflexes: Normal Skin: Dry, Normal Color, Warm Lymphatic: No Adenopathy Was a procedure done? Was a procedure done?: No GI differential Dx Differential Diagnosis: Cholecystitis, Diverticular disease, Gastritis/PUD, Gastroenteritis, Pancreatitis, UTI, Urolithiasis, Food Poisoning X-Ray, Labs, Meds, VS Vital Signs Date Time Temp Pulse Resp B/P (MAP) Pulse Ox O2 Delivery O2 Flow Rate FiO2 09/29/24 23:45 Nasal Cannula* 2 28 09/29/24 23:25 98.9 71 16 145/70 (95) 96 Lab Test 09/30/24 00:46 09/29/24 23:38 Range/Units Troponin I High Sensitivity < 3 L < 3 L </=34 ng/L White Blood Count 3.4 L 4.4-10.8 10^3/uL Red Blood Count 3.73 L 4.0-5.20 10^6/uL Hemoglobin 12.0 L 12.2-16.2 g/dL Hematocrit 35.9 L 36.0-46.0 % Mean Corpuscular Volume 96.3 80.0-100.0 fL Mean Corpuscular Hemoglobin 32.1 H 28.0-32.0 pg Mean Corpuscular Hemoglobin Concent 33.4 32.0-36.0 g/dL Red Cell Distribution Width 15.7 H 11.8-14.3 % Platelet Count 184 140-450 10^3/uL Mean Platelet Volume 7.1 6.9-10.8 fL Neutrophils (%) (Auto) 68.2 37.0-80.0 % Lymphocytes (%) (Auto) 19.6 10.0-50.0 % Monocytes (%) (Auto) 10.5 0.0-12.0 % Eosinophils (%) (Auto) 1.3 0.0-7.0 % Basophils (%) (Auto) 0.4 0.0-2.0 % Neutrophils # (Auto) 2.3 1.6-8.6 10 ^3/uL Lymphocytes # (Auto) 0.7 0.4-5.4 10 ^3/uL Monocytes # (Auto) 0.4 0-1.3 10 ^3/uL Eosinophils # (Auto) 0 0-0.8 10 ^3/uL Basophils # (Auto) 0 0-0.2 10 ^3/uL Nucleated Red Blood Cells 0.2 % Sodium Level 144 136-145 mmol/L Potassium Level 3.8 3.5-5.1 mmol/L Chloride Level 112 H 98-107 mmol/L Carbon Dioxide Level 25 20-31 mmol/L Anion Gap 7 5-15 Blood Urea Nitrogen 15 9-23 mg/dL Creatinine 0.91 0.550-1.02 mg/dL Glomerular Filtration Rate Calc 65 >90 mL/min BUN/Creatinine Ratio 16.5 10.0-20.0 Serum Glucose 137 H 74-106 mg/dL Calcium Level 9.8 8.7-10.4 mg/dL Total Bilirubin 0.2 0.2-1.0 mg/dL Aspartate Amino Transferase (AST) 16 13-40 U/L Alanine Aminotransferase (ALT) 15 7-40 U/L Alkaline Phosphatase 101 46-116 U/L B-Type Natriuretic Peptide 17.78 0-100 pg/mL Total Protein 6.1 5.7-8.2 g/dL Albumin 4.2 3.2-4.8 g/dL Lipase 32 12-53 U/L Current Medications Medications (Trade) Dose Ordered Sig/Dinora Route Start Time Stop Time Status Last Admin Sodium Chloride 1,000 ml @ 1,000 mls/hr Q1H ONCE IV 09/29/24 23:30 09/30/24 00:29 DC 09/30/24 00:00 Ondansetron HCl (Zofran) 4 mg ONCE ONCE IV 09/29/24 23:30 09/29/24 23:31 DC 09/30/24 00:00 [place] [id number] Ph: [phone] DIAGNOSTIC IMAGING Diagnostic Imaging Report : [id number] Signed PATIENT: KATINA LAFLEUR EACCT: [id number] UNIT: [id number] : 1945 LOC: ER ROOM / BED: / AGE / SEX: 79 / F ADM STATUS: REG ER SERVICE [id number] ORDERING PHYSICIAN: RHIANNA MALONE MD PROCEDURE(s): ABPLIV - CT AB PEL WITH IV CON ONLY REASON: vomiting ORDER NUMBER(s): [id number], ACCESSION NUMBER(s): [id number] CT OF THE ABDOMEN AND PELVIS WITH CONTRAST. HISTORY: vomiting COMPARISON: 09/19/2024 TECHNIQUE: Helical axial CT images of the abdomen and pelvis were obtained with intravenous contrast. Multiplanar reformats. One or more of the following radiation dose reduction techniques were used for this examination: automated exposure control, adjustment of the mA and/or kV according to patient size, use of iterative reconstruction technique. FINDINGS: Scattered atelectatic changes in the imaged lung bases. Heart is mildly enlarged. Liver: No discrete hepatic lesions identified. Gallbladder and biliary system: Gallbladder is surgically absent. No appreciable biliary ductal dilatation. Pancreas: Negative. Spleen: Negative. Adrenal Glands: Negative. Kidneys and collecting system: No hydroureteronephrosis or sizable, obstructing urinary tract calculi identified. Nonobstructing bilateral nephrolithiasis again noted. Scattered bilateral renal hypodensities may represent cysts but are otherwise too small to further characterize. Retroperitoneum: Aortoiliac atherosclerotic calcifications. No evidence of abdominal aortic aneurysm. Lymph nodes: No discretely enlarged lymph nodes identified. Bowel: Small hiatal hernia. Question mild gastric wall edema. No evidence of bowel obstruction. No free intraperitoneal air or fluid identified. Pelvis: No sizable bladder calculus. Multiple pelvic surgical clips again noted. Osseous structures: No destructive osseous lesions identified. 2 level degenerative changes of the thoracic and lumbar spine. IMPRESSION: Small hiatal hernia. Questionable thickening versus underdistention of the stomach. Gastritis is a possibility. Please correlate clinically as well as with any endoscopic history. Other relatively unchanged findings as above. HS:Y ATED BY: JOSHUA SANDHU MD DICTATED DATE/TIME: 09/30/24127 SIGNED BY: JOSHUA SANDHU MD SIGNED DATE/TIME: 09/30/24127 CC: Lipase is 32 CMP is normal. CBC is normal. Abdominal pelvis CT shows hiatal hernia and gastritis. First troponin is normal. Second troponin is normal. EKG shows no signs of ischemia. The patient will be discharged to follow up with the primary care physician Time of 1ST Reevaluation: 23:40 Reevaluation 1ST: Unchanged Patient Education/Counseling: Diagnosis, Treatment Family Education/Counseling: Need For Follow Up Departure 1 Departure Time of Disposition: 02:02 Impression: Primary Impression: Hiatal hernia Additional Impression: Gastritis Qualified Codes: K29.00 - Acute gastritis without bleeding Disposition: HOME / SELF CARE / HOMELESS Condition: Stable Additional Instructions: Reassessed patient, vital signs stable. Denies any new symptoms. Patient is able to tolerate PO and ambulate/be mobile at their baseline without concern. Risks and benefits of all medications given or prescribed, if any, discussed. All lab work, imaging and diagnostic studies were reviewed by me. The patient was counseled extensively on my clinical impression, diagnosis, expected course of the disease, and plan, including their follow-up care. Will discharge patient. Patient instructed to follow up with Primary Care Physician within 24-48 hours. Strict return precautions given for further exacerbation of symptoms or for new symptoms. The patient was given the opportunity to ask questions and all questions were answered by myself and the nursing/tech staff. Patient is in agreement with the care plan. The patient verbally expressed understanding of the discharge instructions, including the reasons to return to the Emergency Department. e-Prescriptions Pantoprazole Sodium Sesquihydr (Protonix) 40 Mg Tab 40 MG PO DAILY, #30 TAB Prov: RHIANNA MALONE MD 09/30/24 Discharged With: Self Critical Care Note Critical Care Time?: No Stability Stability form required: No Heart Score Heart Score: Heart Score Response (Comments) Value History N/A 0 EKG N/A 0 Age N/A 0 Risk Factors N/A 0 Troponin N/A 0 Total 0 I personally scribed for RHIANNA MALONE MD ([email or web address]) on 09/29/24 at 23:44. Electronically submitted by Franco Dorado ([email or web address]). RHIANNA MALONE MD Sep 29, 2024 23:44
[2024-09-29 23:47] LABS: Basophils # (auto) 0 10 ^3/uL (0-0.2); Basophils % (auto) 0.4 % (0.0-2.0); Eosinophils # (auto) 0 10 ^3/uL (0-0.8); Eosinophils % (auto) 1.3 % (0.0-7.0); Hematocrit 35.9 % (36.0-46.0); Lymphocytes # (auto) 0.7 10 ^3/uL (0.4-5.4); Lymphocytes % (auto) 19.6 % (10.0-50.0); Mean Corpuscular Hemoglobin 32.1 pg (28.0-32.0); Mean Corpuscular Hgb Conc. 33.4 g/dL (32.0-36.0); Mean Corpuscular Volume 96.3 fL (80.0-100.0); Monocytes # (auto) 0.4 10 ^3/uL (0-1.3); Monocytes % (auto) 10.5 % (0.0-12.0); Neutrophils # (auto) 2.3 10 ^3/uL (1.6-8.6); Neutrophils % (auto) 68.2 % (37.0-80.0); Nucleated Red Blood Cells % 0.2 %; Platelet Count (auto) 184 10^3/uL (140-450); Red Blood Cells 3.73 10^6/uL (4.0-5.20); Red Cell Distribution Width 15.7 % (11.8-14.3); White Blood Cell 3.4 10^3/uL (4.4-10.8)
[2024-09-30] MEDS: ONDANSETRON HCL 4 MG/2 ML VIAL IV ONE
[2024-09-30] MEDS: SODIUM CHLORIDE 0.9% 1,000 ML IV ONE
[2024-09-30 00:15] LABS: Alanine Aminotransferase 15 U/L (7-40); Albumin 4.2 g/dL (3.2-4.8); Alkaline Phosphatase 101 U/L (46-116); Anion Gap 7 (5-15); Aspartate Aminotransferase 16 U/L (13-40); BUN/Creatinine Ratio 16.5 (10.0-20.0); Blood Urea Nitrogen 15 mg/dL (9-23); Calcium 9.8 mg/dL (8.7-10.4); Carbon Dioxide 25 mmol/L (20-31); Lipase 32 U/L (12-53); Potassium 3.8 mmol/L (3.5-5.1); Sodium 144 mmol/L (136-145); Total Protein 6.1 g/dL (5.7-8.2)
[2024-09-30 00:21] LABS: Bilirubin, Total 0.2 mg/dL (0.2-1.0); Chloride 112 mmol/L (98-107); Glucose 137 mg/dL (74-106)
[2024-09-30] MEDS: IOHEXOL 300 MG/ML 100ML BOTTLE IJ ONE (00:57)
--- NOTE | 2024-09-30 01:32 | DVH ---
CT OF THE ABDOMEN AND PELVIS WITH CONTRAST. HISTORY: vomiting COMPARISON: 09/19/2024 TECHNIQUE: Helical axial CT images of the abdomen and pelvis were obtained with intravenous contrast. Multiplanar reformats. One or more of the following radiation dose reduction techniques were used fo r this examination: automated exposure control, adjustment of the mA and/or kV according to patient s ize, use of iterative reconstruction technique. FINDINGS: Scattered atelectatic changes in the imaged lung bases. Heart is mildly enlarged. Liver: No discrete hepatic lesions identified. Gallbladder and biliary system: Gallbladder is surgically absent. No appreciable biliary ductal dilat ation. Pancreas: Negative. Spleen: Negative. Adrenal Glands: Negative. Kidneys and collecting system: No hydroureteronephrosis or sizable, obstructing urinary tract calculi identified. Nonobstructing bilateral nephrolithiasis again noted. Scattered bilateral renal hypoden sities may represent cysts but are otherwise too small to further characterize. Retroperitoneum: Aortoiliac atherosclerotic calcifications. No evidence of abdominal aortic aneurysm. Lymph nodes: No discretely enlarged lymph nodes identified. Bowel: Small hiatal hernia. Question mild gastric wall edema. No evidence of bowel obstruction. No f ree intraperitoneal air or fluid identified. Pelvis: No sizable bladder calculus. Multiple pelvic surgical clips again noted. Osseous structures: No destructive osseous lesions identified. 2 level degenerative changes of the t horacic and lumbar spine. IMPRESSION: Small hiatal hernia. Questionable thickening versus underdistention of the stomach. Gastritis is a p ossibility. Please correlate clinically as well as with any endoscopic history. Other relatively unchanged findings as above. HS:Y
[2024-09-30] MEDS ORDERED: PANT40TA2 PO (02:03)
[2024-09-30 03:14] VITALS: BP 116/68; PULSE 63; RESP 12; TEMP 97.7; O2SAT 98
== END 2024-09-30 03:14 | disposition home or self-care (01) ==
LOC: EDBD 23:12 → ER 23:12 → EDUNIT# 23:12 → ER 09-30 03:14
DX: K29.70 Gastritis, unspecified, without bleeding (principal); K44.9 Diaphragmatic hernia without obstruction or gangrene; I10 Essential (primary) hypertension; E11.9 Type 2 diabetes mellitus without complications; E78.5 Hyperlipidemia, unspecified; Z90.49 Acquired absence of other specified parts of digestive tract; Z90.710 Acquired absence of both cervix and uterus; Z98.890 Other specified postprocedural states; Z85.048 Personal history of other malignant neoplasm of rectum, rectosigmoid junction, and anus; Z79.51 Long term (current) use of inhaled steroids; Z79.84 Long term (current) use of oral hypoglycemic drugs; Z79.890 Hormone replacement therapy; Z79.899 Other long term (current) drug therapy
CPT/HCPCS: 36415; 74177; 80053; 83690; 83880; 84484; 85025; 96361; 96374; 99285; J2405; J7030; Q9967

== ENCOUNTER 2025-01-09 19:14 | Emergency (ER) | payer OTHER ==
[~2025-01-09] VITALS: Ht 152.4 cm; Wt 77.6 kg
[2025-01-09 21:04] LABS: Urine Bacteria None Seen /hpf (None Seen)
--- NOTE | 2025-01-09 21:22 | ED.PDOC ---
GI ASSESSMENT HPI Comments 79 y/o F, with PMHx of kidney stones, cancer, DM, HLD, and HTN presents to the ED for CC of nausea/vomiting. Patient states, she has been experiencing nausea and vomiting with associated symptoms of dizziness onset, today (01/09/25). Patient reports, associated symptoms of diarrhea beginning x1week ago. Patient relays, she was seen at Urgent for symptoms [id number] ago however, symptoms have persisted. Patient denies new prescriptions, change in diet, fever, chills, melena, or blood streaked bowels. No other symptoms or modifying factors present at this time. Chief Complaint: Nausea/Vomiting Time Seen by MD: 20:30 Primary Care Provider: n/a Reviewed Notes: Nurses Notes, Medications, Allergies Allergies: Coded Allergies: NO KNOWN ALLERGIES (Unverified , 06/26/21) Home Meds Active Scripts Pantoprazole Sodium Sesquihydr (Protonix) 40 Mg Tab, 40 MG PO DAILY, #30 TAB Prov:RHIANNA MALONE MD 09/30/24 Tamsulosin Hcl (Tamsulosin Hcl) 0.4 Mg Cap, 1 CAP PO DAILY, #30 CAP 0 Refills Prov:ANY KHAN MD 09/20/24 Baclofen (Baclofen) 5 Mg Tab, 5 MG PO HS for 4 Days, #4 TAB 0 Refills Prov:ANY KHAN MD 09/20/24 Levofloxacin Hemihydrate (LEVAQUIN 500 MG) 500 Mg Tab, 1 TAB PO DAILY for 7 Days, #7 TAB Prov:DOUGLAS TINOCO NP 12/16/23 Loperamide Hcl (Imodium) 2 Mg Cp, 2 MG PO PRN PRN for 7 Days, #14 CAP Prov:DOUGLAS TINOCO NP 12/16/23 Cholestyramine (QUESTRAN POWDER) 4 Gm Pw, 4 GM GT DAILY@11 for 7 Days, #7 POW Stop when BMs are regular Prov:DOUGLAS TINOCO NP 12/16/23 Pantoprazole Sodium Sesquihydr (Protonix) 40 Mg Tab, 40 MG PO BID for 30 Days, #60 TAB Prov:YEFRI BAÑUELOS MD 06/30/21 Reported Medications Levothyroxine Sodium (Levothyroxine Sodium) 50 Mcg Tab, 75 MCG PO QAM for 30 Days, MCG 09/20/24 Patients Own Medication (PATIENTS OWN MEDICATION) . PTS OWN MED-OBTAIN FROM PT AND SEND TO RX DRUG: FREQ: RX# EXP: DATE DISP: TECH: RPH: 09/20/24 Gabapentin (Gabapentin) 100 Mg Cap, 100 MG PO HS for 30 Days, MG 12/13/23 Lisinopril (Lisinopril) 20 Mg Tab, 1 TAB PO DAILY 12/12/23 Empagliflozin (Jardiance) 25 Mg Tab, 1 TAB PO DAILY 12/12/23 Atorvastatin Calcium (ATORVASTATIN CALCIUM) 20 Mg Tab, 1 TAB PO DAILY 12/12/23 Hydrochlorothiazide (Hydrochlorothiazide) 12.5 Mg Tab, 1 TAB PO DAILY 12/12/23 Metformin Hydrochloride (Metformin Hcl Er) 500 Mg Tab, 1 TAB PO BID 12/12/23 Fluticasone-Salmeterol (Advair Diskus 250/50) 1 Puff Ih, 1 PUFF INH BID PRN for SHORTNESS OF BREATH 06/29/21 Information Source: Patient Mode of Arrival: Ambulatory Timing: Days Duration: Since onset Prehospital treatment: None Quality: None Vomitus: Watery Stool: Watery Severity: Moderate Recent: None Recent Hx of: None Pain Location: None Modifying Factors: Nothing Associated sign and symptoms: Nausea, Vomiting, Diarrhea Past Medical History PAST MEDICAL HISTORY: Cancer, DM, High Lipids, HTN, Kidney Stones, Thyroid Surgical History: Appendectomy, Cholecystectomy, Hernia Repair, Hysterectomy, Thyroidectomy, Tonsillectomy 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[employer] SHORTAGE History Family History Family History: Family hx of DM, Family hx of Cancer, Family hx of heart stan, Family hx of HTN Social History Smoker: Non-Smoker Alcohol: Denies ETOH Use Drugs: Denies Drug Use Lives In: Home Constitutional: denies: chills, diaphoresis, fatigue, fever, malaise, sweats, weakness, others EENTM: denies: blurred vision, double vision, ear bleeding, ear discharge, ear drainage, ear pain, ear ringing, eye pain, eye redness, hearing loss, mouth pain, mouth swelling, nasal discharge, nose bleeding, nose congestion, nose pain, photophobia, tearing, throat pain, throat swelling, voice changes, others Respiratory: denies: cough, hemoptysis, orthopnea, SOB at rest, shortness of breath, SOB with excertion, stridor, wheezing, others Cardiovascular: denies: chest pain, dizzy spells, diaphoresis, Dyspnea on exertion, edema, irregular heart beat, left arm pain, lightheadedness, pal pitations, PND, syncope, others Gastrointestinal: reports: diarrhea, nausea, vomiting; denies: abdomen distended, abdominal pain, blood streaked bowels, constipated, dysphagia, difficulty swallowing, hematemesis, melena, poor appetite, poor fluid intake, rectal bleeding, rectal pain, others Genitourinary: denies: abnormal vagina bleeding, burning, dyspareunia, dysuria, flank pain, frequency, hematuria, incontinence, pain, , vagina discharge, urgency, others Neurological: reports: dizziness; denies: fainting, headache, left sided numbness, left sided weakness, numbness, paresthesia, pre-existing deficit, right sided numbness, right sided weakness, seizure, speech problems, tingling, tremors, weakness, others Musculoskeletal: denies: back pain, gout, joint pain, joint swelling, muscle pain, muscle stiffness, neck pain, others Integumetry: denies: bruises, change in color, change in hair/nails, dryness, laceration, lesions, lumps, rash, wounds, others Allergic/Immunocompromised: denies: Difficulty Healing, Frequent Infections, Hives, Itching, others Hematologic/Lymphatic: denies: anemia, blood clots, easy bleeding, easy bruising, swollen glands, others Endocrine: denies: excessive hunger, excessive sweating, excessive thirst, excessive urination, flushing, intolerance to cold, intolerance to heat, unexplained weight gain, unexplained weight loss, others Psychiatric: denies: anxiety, bipolar disorder, depression, hopeless, panic disorder, schizophrenia, sleepless, suicidal, others All Other Systems: Reviewed and Negative Physical Exam General Appearance: No Apparent Distress, Normal HEENT: Normal ENT Inspection, Pharynx Normal, TMs Normal Neck: Full Range of Motion, Non-Tender, Normal, Normal Inspection Respiratory: Chest Non-Tender, Lungs Clear, No Accessory Muscle Use, No Respiratory Distress, Normal Breath Sounds Cardiovascular: No Edema, No Murmur, No Gallop, Normal Peripheral Pulses, Regular Rate/Rhythm Breast Exam: Deferred Gastrointestinal: No Organomegaly, No Pulsatile Mass, Normal Bowel Sounds, RUQ (tenderness), Soft, Tenderness Genitalia: Deferred Pelvic: Deferred Rectal: Deferred Extremities: No calf tenderness, Normal capillary refill, Normal inspection, Normal range of motion, Non-tender, No pedal edema Musculoskeletal : Apperance: Normal Neurologic: Alert, rn progressive care II-XII nml as Tested, No Motor Deficits, Normal Affect, Normal Mood, No Sensory Deficits Cerebellar Function: Normal Reflexes: Normal Skin: Dry, Normal Color, Warm Lymphatic: No Adenopathy Was a procedure done? Was a procedure done?: No GI differential Dx Differential Diagnosis: Gastritis/PUD, Gastroenteritis, Electrolyte Imbalance, Food Poisoning, Bacterial, Viral X-Ray, Labs, Meds, VS Vital Signs Date Time Temp Pulse Resp B/P (MAP) Pulse Ox O2 Delivery O2 Flow Rate FiO2 01/09/25 20:25 99.2 76 18 136/78 (97) 98 99.2 Lab Test 01/09/25 21:24 01/09/25 20:25 01/09/25 20:24 Range/Units White Blood Count 6.6 4.4-10.8 10^3/uL Red Blood Count 4.04 4.0-5.20 10^6/uL Hemoglobin 13.5 12.2-16.2 g/dL Hematocrit 39.6 36.0-46.0 % Mean Corpuscular Volume 98.0 80.0-100.0 fL Mean Corpuscular Hemoglobin 33.3 H 28.0-32.0 pg Mean Corpuscular Hemoglobin Concent 34.0 32.0-36.0 g/dL Red Cell Distribution Width 14.0 11.8-14.3 % Platelet Count 206 140-450 10^3/uL Mean Platelet Volume 7.2 6.9-10.8 fL Neutrophils (%) (Auto) 85.8 H 37.0-80.0 % Lymphocytes (%) (Auto) 4.2 L 10.0-50.0 % Monocytes (%) (Auto) 9.5 0.0-12.0 % Eosinophils (%) (Auto) 0.2 0.0-7.0 % Basophils (%) (Auto) 0.3 0.0-2.0 % Neutrophils # (Auto) 5.6 1.6-8.6 10 ^3/uL Lymphocytes # (Auto) 0.3 L 0.4-5.4 10 ^3/uL Monocytes # (Auto) 0.6 0-1.3 10 ^3/uL Eosinophils # (Auto) 0 0-0.8 10 ^3/uL Basophils # (Auto) 0 0-0.2 10 ^3/uL Nucleated Red Blood Cells 0.0 % Sodium Level 143 136-145 mmol/L Potassium Level 3.5 3.5-5.1 mmol/L Chloride Level 108 H 98-107 mmol/L Carbon Dioxide Level 25 20-31 mmol/L Anion Gap 10 5-15 Blood Urea Nitrogen 18 9-23 mg/dL Creatinine 0.80 0.550-1.02 mg/dL Glomerular Filtration Rate Calc 75 >90 mL/min BUN/Creatinine Ratio 22.5 H 10.0-20.0 Serum Glucose 124 H 74-106 mg/dL Calcium Level 9.4 8.7-10.4 mg/dL Total Bilirubin 0.5 0.2-1.0 mg/dL Aspartate Amino Transferase (AST) 13 13-40 U/L Alanine Aminotransferase (ALT) 13 7-40 U/L Alkaline Phosphatase 98 46-116 U/L Total Protein 6.8 5.7-8.2 g/dL Albumin 4.8 3.2-4.8 g/dL Lipase 30 12-53 U/L Urine Color Light-yellow Yellow Urine Clarity Clear Clear Urine pH 5.0 5.0-9.0 Urine Specific [place] 1.029 1.001-1.035 Urine Protein Trace H Negative Urine Ketones Negative Negative Urine Blood 1+ H Negative /uL Urine Nitrite Negative Negative Urine Bilirubin Negative Negative Urine Urobilinogen Normal Negative mg/dL Urine Leukocyte Esterase Negative Negative /uL Urine RBC 2 0 - 4 /hpf Urine Microscopic WBC 27 H 0-5 /HPF Urine Squamous Epithelial Cells Few <5 /hpf Urine Bacteria None seen None Seen /hpf Urine Glucose 4+ H Normal mg/dL POC Glucose 135 H 70-106 mg/dl [address] [address] Ph: [phone] DIAGNOSTIC IMAGING Diagnostic Imaging Report : [id number] Signed PATIENT: KATINA LAFLEUR EACCT: [id number] UNIT: [id number] : 1945 LOC: ER ROOM / BED: / AGE / SEX: 79 / F ADM STATUS: REG ER SERVICE 57 ORDERING PHYSICIAN: ANDREA MORTON PROCEDURE(s): ABPL - CT AB PEL WO CON-NO ORAL OR IV REASON: ABD PAIN ORDER NUMBER(s): [id number], ACCESSION NUMBER(s): [id number] CT SCAN ABDOMEN AND PELVIS WITHOUT CONTRAST CLINICAL HISTORY: ABD PAIN TECHNIQUE: Helical axial images are obtained from the lung bases through the pelvis without oral contrast. No intravenous contrast was administered. Coronal and sagittal reformatted images were generated from thin section reconstructions. One or more of the following radiation dose reduction techniques were used for this examination: automated exposure control, adjustment of the mA and/or kV according to patient size, use of iterative reconstruction technique. COMPARISON: CT 09/30/2024. FINDINGS: Scattered atelectatic changes in the imaged lung bases. Evaluation of visceral and vascular structures is limited due to lack of contrast administration. As visualized, the unenhanced liver, spleen, pancreas and adrenals appear grossly unremarkable. The gallbladder is surgically absent. No appreciable biliary ductal dilatation. No hydroureteronephrosis. Nonobstructing bilateral nephrolithiasis. Small hypodensities in both kidneys may represent cysts but are otherwise incompletely characterized. Aortoiliac atherosclerotic calcifications. No evidence of abdominal aortic aneurysm. Small hiatal hernia. No evidence of small-bowel obstruction. No free intraperi toneal air or fluid identified. No sizable bladder calculus. Degenerative changes of the thoracic and lumbar spine. Chronic appearing grade 1 anterolisthesis of L5 on S1 with bilateral pars defects. Chronic appearing grade 1 anterolisthesis of L3 on L4 as well. IMPRESSION: No bowel obstruction, free intraperitoneal air/ fluid or sizable inflammatory collections identified on this noncontrast examination. Other chronic appearing findings as above. ATED BY: JOSHUA SANDHU MD DICTATED DATE/TIME: 01/09/252134 SIGNED BY: JOSHUA SANDHU MD SIGNED DATE/TIME: 01/09/252134 CC: X-Ray, Labs, Meds, VS Comment IMAGING: X-RAYS AND CT SCANS WERE REVIEWED AND INTERPRETED BY THIS PROVIDER, IMAGING SHOWS NO FRACTURES AND NO PATHOLOGICAL DISEASE. PENDING RADIOLOGY REVIEW. LABORATORY: LABS REVIEWED AND INTERPRETED BY THIS PROVIDER. URINALYSIS SHOWS SIGNS OF URINARY TRACT INFECTION ALONG WITH HER CLINICAL SYMPTOMS. PATIENT WILL BE TREATED WITH MACROBID AND SENT HOME WITH ZOFRAN. PATIENT HAS PRIOR MEDICAL VISITS REVIEWED. MED RECONCILIATION PERFORMED VITAL SIGNS REVIEWED Time of 1ST Reevaluation: 21:00 Reevaluation 1ST: Unchanged Patient Education/Counseling: Diagnosis, Treatment, Need For Follow Up (FOLLOW UP WITH PCP IN THE NEXT AVAILABLE APPOINTMENT. RETURN TO EMERGENCY DEPARTMENT IF SYMPTOMS WORSEN.) Family Education/Counseling: No Family Present Departure 1 Departure Time of Disposition: 22:04 Impression: Primary Impression: UTI (urinary tract infection) Qualified Codes: N30.01 - Acute cystitis with hematuria Disposition: HOME / SELF CARE / HOMELESS Condition: Fair e-Prescriptions Ondansetron HCl (Ondansetron) 4 Mg Tab 4 MG PO TID PRN, #15 TAB Prov: ANDREA MORTON ASSEMBLING FABRICATOR 01/09/25 Nitrofurantoin Monohydrate Mac (Macrobid) 100 Mg Cap 100 MG PO BID for 7 Days, #14 CAP Prov: ANDREA MORTON ASSEMBLING FABRICATOR 01/09/25 Discharged With: Self Critical Care Note Critical Care Time?: No Stability Stability form required: No Heart Score Heart Score: Heart Score Response (Comments) Value History N/A 0 EKG N/A 0 Age N/A 0 Risk Factors N/A 0 Troponin N/A 0 Total 0 I personally scribed for ANDREA MORTON ASSEMBLING FABRICATOR ([email or web address]) on 01/09/25 at 21:22. Electronically submitted by Leslee Muñoz ([email or web address]). I personally scribed for ANDREA MORTON ASSEMBLING FABRICATOR ([email or web address]) on 01/09/25 at 21:43. Electronically submitted by Leslee Muñoz ([email or web address]). ANDREA MORTON ASSEMBLING FABRICATOR January 09, 2025 21:22
[2025-01-09 21:23] LABS: Urine Blood 1+ /uL (Negative); Urine Clarity Clear (Clear); Urine Color Light-Yellow (Yellow); Urine Protein, UAD TRACE (Negative); Urine Specific Gravity 1.029 (1.001-1.035); Urine Squamous Epithelial Cell FEW /hpf (<5); Urine Urobilinogen Normal (Negative); Urine WBC 27 /HPF (0-5)
--- NOTE | 2025-01-09 21:37 | DVH ---
CT SCAN ABDOMEN AND PELVIS WITHOUT CONTRAST CLINICAL HISTORY: ABD PAIN TECHNIQUE: Helical axial images are obtained from the lung bases through the pelvis without oral cont rast. No intravenous contrast was administered. Coronal and sagittal reformatted images were generate d from thin section reconstructions. One or more of the following radiation dose reduction techniques were used for this examination: automated exposure control, adjustment of the mA and/or kV according to patient size, use of iterative reconstruction technique. COMPARISON: CT 09/30/2024. FINDINGS: Scattered atelectatic changes in the imaged lung bases. Evaluation of visceral and vascular structures is limited due to lack of contrast administration. As visualized, the unenhanced liver, spleen, pancreas and adrenals appear grossly unremarkable. The gallbladder is surgically absent. No appreciable biliary ductal dilatation. No hydroureteronephrosis. Nonobstructing bilateral nephrolithiasis. Small hypodensities in both kidne ys may represent cysts but are otherwise incompletely characterized. Aortoiliac atherosclerotic calcifications. No evidence of abdominal aortic aneurysm. Small hiatal hernia. No evidence of small-bowel obstruction. No free intraperitoneal air or fluid id entified. No sizable bladder calculus. Degenerative changes of the thoracic and lumbar spine. Chronic appearing grade 1 anterolisthesis of L 5 on S1 with bilateral pars defects. Chronic appearing grade 1 anterolisthesis of L3 on L4 as well. IMPRESSION: No bowel obstruction, free intraperitoneal air/ fluid or sizable inflammatory collections identified on this noncontrast examination. Other chronic appearing findings as above.
[2025-01-09 21:41] LABS: Basophils # (auto) 0 10 ^3/uL (0-0.2); Basophils % (auto) 0.3 % (0.0-2.0); Eosinophils # (auto) 0 10 ^3/uL (0-0.8); Eosinophils % (auto) 0.2 % (0.0-7.0); Hematocrit 39.6 % (36.0-46.0); Hemoglobin 13.5 g/dL (12.2-16.2); Lymphocytes # (auto) 0.3 10 ^3/uL (0.4-5.4); Lymphocytes % (auto) 4.2 % (10.0-50.0); Mean Corpuscular Hemoglobin 33.3 pg (28.0-32.0); Monocytes # (auto) 0.6 10 ^3/uL (0-1.3); Monocytes % (auto) 9.5 % (0.0-12.0); Neutrophils # (auto) 5.6 10 ^3/uL (1.6-8.6); Neutrophils % (auto) 85.8 % (37.0-80.0); Platelet Count (auto) 206 10^3/uL (140-450); Red Blood Cells 4.04 10^6/uL (4.0-5.20); White Blood Cell 6.6 10^3/uL (4.4-10.8)
[2025-01-09 21:57] LABS: Alanine Aminotransferase 13 U/L (7-40); Alkaline Phosphatase 98 U/L (46-116); Anion Gap 10 (5-15); BUN/Creatinine Ratio 22.5 (10.0-20.0); Blood Urea Nitrogen 18 mg/dL (9-23); Calcium 9.4 mg/dL (8.7-10.4); Carbon Dioxide 25 mmol/L (20-31); Lipase 30 U/L (12-53); Potassium 3.5 mmol/L (3.5-5.1); Sodium 143 mmol/L (136-145); Total Protein 6.8 g/dL (5.7-8.2)
[2025-01-09 21:58] LABS: Albumin 4.8 g/dL (3.2-4.8); Bilirubin, Total 0.5 mg/dL (0.2-1.0)
[2025-01-09 21:59] LABS: Aspartate Aminotransferase 13 U/L (13-40); Chloride 108 mmol/L (98-107); Glucose 124 mg/dL (74-106)
[2025-01-09] MEDS ORDERED: NITR-87 PO (22:04)
[2025-01-09] MEDS ORDERED: ONDA-155 PO (22:05)
[2025-01-09 22:15] VITALS: BP 111/59; PULSE 68; RESP 16; TEMP 98.6; O2SAT 92
[2025-01-09] MEDS ORDERED: ONDANSETRON HCL 4 MG/2 ML VIAL IV ONE (23:15)
== END 2025-01-10 00:21 | disposition left against medical advice (07) ==
LOC: ER 19:14
DX: N39.0 Urinary tract infection, site not specified (principal); R11.2 Nausea with vomiting, unspecified; E11.9 Type 2 diabetes mellitus without complications; I10 Essential (primary) hypertension; E78.5 Hyperlipidemia, unspecified; Z79.899 Other long term (current) drug therapy; Z90.49 Acquired absence of other specified parts of digestive tract; Z90.710 Acquired absence of both cervix and uterus; Z98.890 Other specified postprocedural states
CPT/HCPCS: 36415; 74176; 80053; 81001; 82947; 82962; 83690; 85025

== ENCOUNTER 2025-05-19 10:47 | Inpatient (IN) | payer OTHER ==
[~2025-05-19] VITALS: Ht 152.4 cm; Wt 82.3 kg
[~2025-05-19 10:47] MED LIST changes: +NITR-87 PO; +ONDA-155 PO
--- NOTE | 2025-05-19 11:16 | ED.PDOC ---
Musculoskeletal HPI Comments This is a 79 year old female presenting to the ED with chief complaint of bilateral hip pain. Patient reports that she has been experiencing bilateral hip pain with associated tailbone pain for the past 3 days. Patient relays that she has been unable to lift up either of her legs to walk around on her own due to the pain and weakness in her legs, despite normally being able to walk with a walker. Patient states that she has taken Ibuprofen and Excedrin with no relief noted, last dose being last night. Patient denies any numbness, tingling, fall, injury, flank pain, abdominal pain, or dysuria. Chief Complaint: Lower Extremity Time Seen by MD: 11:13 Primary Care Provider: n/a Reviewed Notes: Nurses Notes, Medications, Allergies Allergies: Coded Allergies: NO KNOWN ALLERGIES (Unverified , 06/26/21) Home Meds Active Scripts Ondansetron HCl (Ondansetron) 4 Mg Tab, 4 MG PO TID PRN, #15 TAB Prov:ANDREA MORTON 01/09/25 Nitrofurantoin Monohydrate Mac (Macrobid) 100 Mg Cap, 100 MG PO BID for 7 Days, #14 CAP Prov:ANDREA MORTON 01/09/25 Pantoprazole Sodium Sesquihydr (Protonix) 40 Mg Tab, 40 MG PO DAILY, #30 TAB Prov:RHIANNA MALONE MD 09/30/24 Tamsulosin Hcl (Tamsulosin Hcl) 0.4 Mg Cap, 1 CAP PO DAILY, #30 CAP 0 Refills Prov:ANY KHAN MD 09/20/24 Baclofen (Baclofen) 5 Mg Tab, 5 MG PO HS for 4 Days, #4 TAB 0 Refills Prov:ANY KHAN MD 09/20/24 Levofloxacin Hemihydrate (LEVAQUIN 500 MG) 500 Mg Tab, 1 TAB PO DAILY for 7 Days, #7 TAB Prov:DOUGLAS TINOCO D[employer]ITAL CONTENT PRODUCER 12/16/23 Loperamide Hcl (Imodium) 2 Mg Cp, 2 MG PO PRN PRN for 7 Days, #14 CAP Prov:DOUGLAS TINOCO D[employer]ITAL CONTENT PRODUCER 12/16/23 Cholestyramine (QUESTRAN POWDER) 4 Gm Pw, 4 GM GT DAILY@11 for 7 Days, #7 POW Stop when BMs are regular Prov:SALBINO,COLE [employer]ITAL CONTENT PRODUCER 12/16/23 Pantoprazole Sodium Sesquihydr (Protonix) 40 Mg Tab, 40 MG PO BID for 30 Days, #60 TAB Prov:YEFRI BAÑUELOS MD 06/30/21 Reported Medications Levothyroxine Sodium (Levothyroxine Sodium) 50 Mcg Tab, 75 MCG PO QAM for 30 Days, MCG 09/20/24 Patients Own Medication (PATIENTS OWN MEDICATION) . PTS OWN MED-OBTAIN FROM PT AND SEND TO RX DRUG: FREQ: RX# EXP: DATE DISP: TECH: RPH: 09/20/24 Gabapentin (Gabapentin) 100 Mg Cap, 100 MG PO HS for 30 Days, MG 12/13/23 Lisinopril (Lisinopril) 20 Mg Tab, 1 TAB PO DAILY 12/12/23 Empagliflozin (Jardiance) 25 Mg Tab, 1 TAB PO DAILY 12/12/23 Atorvastatin Calcium (ATORVASTATIN CALCIUM) 20 Mg Tab, 1 TAB PO DAILY 12/12/23 Hydrochlorothiazide (Hydrochlorothiazide) 12.5 Mg Tab, 1 TAB PO DAILY 12/12/23 Metformin Hydrochloride (Metformin Hcl Er) 500 Mg Tab, 1 TAB PO BID 12/12/23 Fluticasone-Salmeterol (Advair Diskus 250/50) 1 Puff Ih, 1 PUFF INH BID PRN for SHORTNESS OF BREATH 06/29/21 Information Source: Patient, Relative Mode of Arrival: Wheelchair Location: Bilateral Extremity Location: Back, Hip Timing: Days Prehospital treatment: None Severity: Moderate Able to Move Extremity: Yes Bear Weight: Limited Pain: Moderate Mechanism: Spontaneous Circumstances: Spontaneous Onset of Symptoms: Spontaneous Symptoms: Pain DVT Risk Factors: NONE Last Tetanus: Unknown Past Medical History PAST MEDICAL HISTORY: Arthritis, Cancer (colon ca in remission), DM, High Lipids, HTN, Kidney Stones, Thyroid Surgical History: Appendectomy, Cholecystectomy, Hernia Repair, Hysterectomy, Thyroidectomy, Tonsillectomy Surgical History (Other): colon surgery [employer] 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 History Family History Family History: Reviewed,noncontributory to illness, Family hx of DM, Family hx of Cancer, Family hx of heart stan, Family hx of HTN Social History Smoker: Non-Smoker Alcohol: Denies ETOH Use Drugs: Denies Drug Use Lives In: Home Constitutional: denies: chills, diaphoresis, fatigue, fever, malaise, sweats, weakness, others EENTM: denies: blurred vision, double vision, ear bleeding, ear discharge, ear drainage, ear pain, ear ringing, eye pain, eye redness, hearing loss, mouth pain, mouth swelling, nasal discharge, nose bleeding, nose congestion, nose pain, photophobia, tearing, throat pain, throat swelling, voice changes, others Respiratory: denies: cough, hemoptysis, orthopnea, SOB at rest, shortness of breath, SOB with excertion, stridor, wheezing, others Cardiovascular: denies: chest pain, dizzy spells, diaphoresis, Dyspnea on exertion, edema, irregular heart beat, left arm pain, lightheadedness, palpitations, PND, syncope, others Gastrointestinal: denies: abdomen distended, abdominal pain, blood streaked bowels, constipated, diarrhea, dysphagia, difficulty swallowing, hematemesis, melena, nausea, poor appetite, poor fluid intake, rectal bleeding, rectal pain, vomiting, others Genitourinary: denies: abnormal vagina bleeding, burning, dyspareunia, dysuria, flank pain, frequency, hematuria, incontinence, pain, , vagina discharge, urgency, others Neurological: denies: dizziness, fainting, headache, left sided numbness, left sided weakness, numbness, paresthesia, pre-existing deficit, right sided numbness, right sided weakness, seizure, speech problems, tingling, tremors, weakness, others Musculoskeletal: reports: back pain, others (Bilateral hip pain); denies: gout, joint pain, joint swelling, muscle pain, muscle stiffness, neck pain Integumetry: denies: bruises, change in color, change in hair/nails, dryness, laceration, lesions, lumps, rash, wounds, others Allergic/Immunocompromised: denies: Difficulty Healing, Frequent Infections, Hives, Itching, others Hematologic/Lymphatic: denies: anemia, blood clots, easy bleeding, easy bruising, swollen glands, others Endocrine: denies: excessive hunger, excessive sweating, excessive thirst, excessive urination, flushing, intolerance to cold, intolerance to heat, unexplained weight gain, unexplained weight loss, others Psychiatric: denies: anxiety, bipolar disorder, depression, hopeless, panic disorder, schizophrenia, sleepless, suicidal, others All Other Systems: Reviewed and Negative Physical Exam General Appearance: No Apparent Distress, Obese HEENT: Other (Pupils and face symmetric. Moist mucous membranes.) Neck: Full Range of Motion, Normal Inspection Respiratory: Lungs Clear, No Accessory Muscle Use, No Respiratory Distress, Normal Breath Sounds Cardiovascular: No Edema, No JVD, Regular Rate/Rhythm Breast Exam: Deferred Gastrointestinal: Non Tender, Soft Genitalia: Deferred Pelvic: Deferred Rectal: Deferred Extremities: Other (Lower sacral midline and paraspinal tenderness to palpation, bilateral hip an inguinal tenderness to palpation. Hip flexion increases the pain bilaterally.) Neurologic: Alert (Oriented x4), Other (No gross focal motor deficit.) Cerebellar Function: NOT DONE Reflexes: NOT DONE Skin: Dry, Normal Color, Warm Peripheral Pulses: 2+ dorsalis pedis (R), 2+ dorsalis pedis (L) Lymphatic: NOT DONE Was a procedure done? Was a procedure done?: No Differential Diagnosis EXT Differential Diagnosis: Sprain, Dislocation, Contusion, Strain, Rheumatoid, Arthritis, Other (Radiculopathy, spine disease, electrolyte imbalance, UTI, among others) X-Ray, Labs, Meds, VS Vital Signs Date Time Temp Pulse Resp B/P (MAP) Pulse Ox O2 Delivery O2 Flow Rate FiO2 05/19/25 12:09 64 16 95 Room Air 05/19/25 12:06 98.7 64 16 138/74 (95) 95 98.7 05/19/25 10:52 98.0 72 16 156/87 95 98.0 Lab Test 05/19/25 12:00 Range/Units White Blood Count 4.8 4.4-10.8 10^3/uL Red Blood Count 4.24 4.0-5.20 10^6/uL Hemoglobin 14.3 12.2-16.2 g/dL Hematocrit 41.0 36.0-46.0 % Mean Corpuscular Volume 96.7 80.0-100.0 fL Mean Corpuscular Hemoglobin 33.7 H 28.0-32.0 pg Mean Corpuscular Hemoglobin Concent 34.8 32.0-36.0 g/dL Red Cell Distribution Width 13.6 11.8-14.3 % Platelet Count 194 140-450 10^3/uL Mean Platelet Volume 7.6 6.9-10.8 fL Neutrophils (%) (Auto) 77.8 37.0-80.0 % Lymphocytes (%) (Auto) 9.9 L 10.0-50.0 % Monocytes (%) (Auto) 11.0 0.0-12.0 % Eosinophils (%) (Auto) 0.9 0.0-7.0 % Basophils (%) (Auto) 0.4 0.0-2.0 % Neutrophils # (Auto) 3.7 1.6-8.6 10 ^3/uL Lymphocytes # (Auto) 0.5 0.4-5.4 10 ^3/uL Monocytes # (Auto) 0.5 0-1.3 10 ^3/uL Eosinophils # (Auto) 0 0-0.8 10 ^3/uL Basophils # (Auto) 0 0-0.2 10 ^3/uL Nucleated Red Blood Cells 0.0 % Sodium Level 142 136-145 mmol/L Potassium Level 3.6 3.5-5.1 mmol/L Chloride Level 106 98-107 mmol/L Carbon Dioxide Level 26 20-31 mmol/L Anion Gap 10 5-15 Blood Urea Nitrogen 16 9-23 mg/dL Creatinine 0.82 0.550-1.02 mg/dL Glomerular Filtration Rate Calc 73 >90 mL/min BUN/Creatinine Ratio 19.5 10.0-20.0 Serum Glucose 130 H 74-106 mg/dL Calcium Level 9.9 8.7-10.4 mg/dL Current Medications Medications (Trade) Dose Ordered Sig/Dinora Route Start Time Stop Time Status Last Admin Acetaminophen/ Hydrocodone Bitart (Fielding 5/325MG Tab) 2 tab ONCE ONCE PO 05/19/25 11:15 05/19/25 11:16 DC 05/19/25 12:[address]: No acute pelvic finding. Severely demineralized bones. Discogenic and spondylotic degenerative changes resulting in high-grade neural foraminal narrowing, notably on the left at L3-L4 and on the left at L5-S1. Correlate with radicular symptoms. LS Spine CT: 1. No acute fracture or dislocation. 2. Disc protrusions present at L3-4, L4-5 and L5-S1 as above. 3. Other degenerative changes as above X-Ray, Labs, Meds, VS Comment 79-year-old female with history of colon cancer in remission, hypertension, diabetes, kidney stones and thyroid disease complaining of sacral/coccygeal pain radiating to bilateral hips and inability to ambulate due to the pain Vitals remarkable for BP 156/87 Exam remarkable for midline and paraspinal sacral tenderness to palpation, bilateral inguinal and hip tenderness to palpation, exacerbation of pain with hip flexion Rhythm strip independently interpreted by me: Sinus rhythm, rate 72, no ectopy. CT lumbar sacral spine positive for lumbosacral disc protrusions CT pelvis remarkable for lumbosacral high-grade foraminal narrowing CBC and basic metabolic panel unremarkable. UA pending. Patient treated with the following in the ED: Fielding 5/325 mg 2 tabs p.o. On re-evaluation, patient states pain has partially improved. Vitals were stable. Plan is to admit the patient for pain control, spine MRI, possible ortho/spine evaluation and PT/OT evaluation Images Reviewed?: Images reviewed and evaluated by me Time of 1ST Reevaluation: 12:12 Reevaluation 1ST: Unchanged Patient Education/Counseling: Diagnosis, Treatment Family Education/Counseling: Diagnosis, Treatment Departure 1 Departure Time of Disposition: 13:24 Impression: Primary Impression: Neuroforaminal stenosis of lumbosacral spine Additional Impression: Lumbosacral disc herniation Disposition: ADMITTED INPATIENT Admit to: Med Surg Condition: Fair Critical Care Note Critical Care Time?: No Stability Stability form required: No Heart Score Heart Score: Heart Score Response (Comments) Value History N/A 0 EKG N/A 0 Age N/A 0 Risk Factors N/A 0 Troponin N/A 0 Total 0 I personally scribed for JUANITO ALMANZA MD ([email or web address]) on 05/19/25 at 11:16. Electronically submitted by Jimmie Schumacher ([email or web address]). I personally scribed for JUANITO ALMANZA MD ([email or web address]) on 05/19/25 at 12:07. Electronically submitted by Jimmie Schumacher ([email or web address]). JUANITO ALMANZA MD May 19, 2025 11:16
--- NOTE | 2025-05-19 11:59 | DVH ---
History: sacral pain radiating to hips, unable to amb due to pain Comparison Study: CT CT AB PEL WO CON-NO ORAL OR IV on DOS: 01/09/25, CT CT AB PEL WITH IV CON ONLY on DOS: 09/30/24, CT CT AB PEL WO CON-NO ORAL OR IV on DOS: 09/19/24, CT CT AB PEL WO CON-NO ORAL OR IV on DOS: 12/12/23, CT CT AB PEL WO CON-NO ORAL OR IV on DOS: 12/30/22 Technique: Multidetector spiral CT of the pelvis was performed from iliac crests to pubic symphysis. No contrast administered. Radiation Dose : CT Dose: CTDI volume is 41.02 mGy. Dose-length product is 922.86 mGy*cm Findings: The bones are demineralized. No acute fracture or dislocation. No significant degenerative changes of the hips. Mild degenerative changes of the sacroiliac joint. Moderate right and severe left neural foraminal narrowing at L5 - S1 secondary to severe disc height loss and facet arthrosis. There is grade 1 anterolisthesis of L5 on S1 with uncovering of a calcified disc. At L4-L5, there is a posterior calcified disc osteophyte complex resulting in mild spinal haja l narrowing. There is facet arthrosis which results in mild bilateral neural foraminal narrowing. At L3-L4, there is a posterior broad-based calcified disc osteophyte complex with facet arthrosis and li gamentum flavum infolding resulting in moderate- severe spinal canal narrowing. Severe left and moder ate right neural foraminal narrowing. IMPRESSION: No acute pelvic finding. Severely demineralized bones. Discogenic and spondylotic degenerative changes resulting in high-grade neural foraminal narrowing, n otably on the left at L3-L4 and on the left at L5-S1. Correlate with radicular symptoms.
[2025-05-19] MEDS: HYDROcodone-ACET 5/325MG TAB PO ONE (12:02)
--- NOTE | 2025-05-19 12:03 | DVH ---
EXAM: CT LS SPINE WO CONTRAST INDICATION: sacral pain radiating to hips, unable to amb due to pain COMPARISON: CT ABD PELVIS WO CONTRAST on DOS: 06/26/21 TECHNIQUE: Multiple axial CT images of the lumbar spine were obtained using bone algorithm. Axial an d coronal reformatting was done. Bone and soft tissue windows were reviewed. Radiation Dose Information: CT Dose: CTDI volume is 41 mGy. Dose-length product is 2340 mGy*cm FINDINGS: No CT evidence of acute fracture or traumatic mal-alignment. The visualized paraspinal soft tissues a re grossly unremarkable. T11 -12: Severe disc height loss is seen at this level. T12-L1: The disc at this level appears grossly normal. L1-2: The disc height at this level appears normal. L2-3: There is moderate disc height loss at this level. There is a mild to moderate partially calcifi ed disc, this along with hypertrophied ligamentum flavum is causing moderate central canal stenosis. L3-4: There is grade 1/4 anterolisthesis present at this level. There is a mild to moderate partially calcified disc protrusion, this with hypertrophied ligamentum flavum is causing moderate to high-gra de central canal stenosis. L4-5: Moderate disc height loss is seen at this level. There is a mild to moderate partially calcifie d central disc protrusion at this level, this is causing no significant central canal stenosis. L5-S1: Severe disc height loss is seen at this level. There is grade 1/4 anterolisthesis present. Th ere is a moderate-sized partially calcified disc protrusion at this level, this does not appear to be causing significant central canal stenosis. IMPRESSION: 1. No acute fracture or dislocation. 2. Disc protrusions present at L3-4, L4-5 and L5-S1 as above. 3. Other degenerative changes as above
[2025-05-19 12:14] LABS: Hematocrit 41.0 % (36.0-46.0); Hemoglobin 14.3 g/dL (12.2-16.2); Mean Corpuscular Hemoglobin 33.7 pg (28.0-32.0); Mean Corpuscular Volume 96.7 fL (80.0-100.0); Nucleated Red Blood Cells % 0.0 %
[2025-05-19 12:18] LABS: Chloride 106 mmol/L (98-107); Potassium 3.6 mmol/L (3.5-5.1); Sodium 142 mmol/L (136-145)
[2025-05-19 12:19] LABS: Anion Gap 10 (5-15); Calcium 9.9 mg/dL (8.7-10.4); Carbon Dioxide 26 mmol/L (20-31)
[2025-05-19 12:24] LABS: BUN/Creatinine Ratio 19.5 (10.0-20.0); Blood Urea Nitrogen 16 mg/dL (9-23)
[2025-05-19 12:29] LABS: Glucose 130 mg/dL (74-106)
[2025-05-19] MEDS ORDERED: ACETAMINOPHEN 325 MG TAB PO PRN (15:30)
--- NOTE | 2025-05-19 15:43 | DVHHP2 ---
History of Present Illness Reason for Visit: Generalized weakness likely due to lumbar pain History of Present Illness This is a pleasant 79-year-old female who is in a wheelchair presented to the ED with chief complaint of lumbar pain associated with bilateral hip pain that has progressively gotten worse in the past three days. The patient relates that she has been unable to lift up either of her legs to walk around independently due to the progressive weakness despite normally being able to walk with a walker. The patient states that she has taken ibuprofen and Excedrin with no relief noted last dose being last night. The patient denied any recent injury or fall that may have caused this. The patient is concerned about her symptoms and would like to be further evaluated and treated. The patient will be admitted under hospitalist care to the medical-surgical unit. The patient denies fever, chills, headache, dizziness, shortness of breath, palpitation, chest pain, nausea, vomiting, abdominal pain, diarrhea, constipation and other associated symptoms. The plan has been discussed with the patient and daughter who is with her in which all questions concerns have been addressed. Cardiovascular: HTN, hyperipidemia Musculoskeletal: Other (Arthritis) Endocrine: Diabetes Past Medical History Colon cancer currently in remission Past Surgical History: Appendectomy, Cholecystectomy, Hysterectomy, Hernia Repair, Tonsillectomy Past Surgical History Thyroidectomy Colon resection Family History: Cancer, DM, Hypertension, Other (Heart disease) Smoke: No ALCOHOL: none Drugs: None Lives: with Family Domestic Violence: Neg Review of Systems Constitutional: Yes: Weakness Musculoskeletal: other (Bilateral hip pain), back pain, leg pain Allergies: Coded Allergies: NO KNOWN ALLERGIES (Unverified , 06/26/21) Medications Current Medications Medications Dose Ordered Sig/Dinora Route Start Time Stop Time Status Last Admin Dose Admin Sodium Chloride 1,000 ml @ 60 mls/hr [id number] IV 05/19/25 15:30 UNV Acetaminophen/ Hydrocodone Bitart 1 tab Q4HP PRN PO 05/19/25 15:30 UNV Docusate Sodium 100 mg BIDPRN PRN PO 05/19/25 15:30 UNV Enoxaparin Sodium 40 mg DAILY SC 05/20/25 10:00 UNV Acetaminophen 650 mg Q6HP PRN PO 05/19/25 15:30 UNV Atorvastatin Calcium 20 mg DAILY PO 05/20/25 10:00 UNV Cholestyramine Resin 4 gm DAILY@11 GT 05/20/25 11:00 UNV Levothyroxine Sodium 75 mcg QAM PO 05/20/25 07:00 UNV Lisinopril 20 mg DAILY PO 05/20/25 10:00 UNV Patient Own Medication 5 mg HS PO 05/19/25 22:00 UNV Patient Own Medication 1 tab DAILY PO 05/20/25 10:00 UNV Patient Own Medication 1 tab DAILY PO 05/20/25 10:00 UNV Exam Vital Signs Vital Signs Date Time Temp Pulse Resp B/P (MAP) Pulse Ox O2 Delivery O2 Flow Rate FiO2 05/19/25 12:09 64 16 95 Room Air 05/19/25 12:06 98.7 138/74 (95) 98.7 General Appearance: Alert, Oriented X3, Cooperative, No acute distress HEENT: Atraumatic, PERRLA, Mucous membr. moist/pink Respiratory: Clear to auscultation, Normal air movement Cardiovascular: Regular rate, Normal S1, Normal S2, No murmurs Abdominal: Normal bowel sounds, Soft, No tenderness, No hepatospenomegaly, No masses Extremities: No clubbing, No cyanosis, No edema, Normal pulses Skin: No rashes Neuro: Normal speech, Normal tone, Cranial nerves 3-12 NL, Other (Currently in a wheelchair) Psych/Mental Status: Mental status NL, Mood NL Labs/Xrays Labs Test 05/19/25 12:00 Range/Units White Blood Count 4.8 4.4-10.8 10^3/uL Red Blood Count 4.24 4.0-5.20 10^6/uL Hemoglobin 14.3 12.2-16.2 g/dL Hematocrit 41.0 36.0-46.0 % Mean Corpuscular Volume 96.7 80.0-100.0 fL Mean Corpuscular Hemoglobin 33.7 H 28.0-32.0 pg Mean Corpuscular Hemoglobin Concent 34.8 32.0-36.0 g/dL Red Cell Distribution Width 13.6 11.8-14.3 % Platelet Count 194 140-450 10^3/uL Mean Platelet Volume 7.6 6.9-10.8 fL Neutrophils (%) (Auto) 77.8 37.0-80.0 % Lymphocytes (%) (Auto) 9.9 L 10.0-50.0 % Monocytes (%) (Auto) 11.0 0.0-12.0 % Eosinophils (%) (Auto) 0.9 0.0-7.0 % Basophils (%) (Auto) 0.4 0.0-2.0 % Neutrophils # (Auto) 3.7 1.6-8.6 10 ^3/uL Lymphocytes # (Auto) 0.5 0.4-5.4 10 ^3/uL Monocytes # (Auto) 0.5 0-1.3 10 ^3/uL Eosinophils # (Auto) 0 0-0.8 10 ^3/uL Basophils # (Auto) 0 0-0.2 10 ^3/uL Nucleated Red Blood Cells 0.0 % Sodium Level 142 136-145 mmol/L Potassium Level 3.6 3.5-5.1 mmol/L Chloride Level 106 98-107 mmol/L Carbon Dioxide Level 26 20-31 mmol/L Anion Gap 10 5-15 Blood Urea Nitrogen 16 9-23 mg/dL Creatinine 0.82 0.550-1.02 mg/dL Glomerular Filtration Rate Calc 73 >90 mL/min BUN/Creatinine Ratio 19.5 10.0-20.0 Serum Glucose 130 H 74-106 mg/dL Calcium Level 9.9 8.7-10.4 mg/dL ORDERING PHYSICIAN: JUANITO ALMANZA MD PROCEDURE(s): PL2CT - PELVIS WO CONTRAST REASON: sacral pain radiating to hips, unable to amb due to pain ORDER NUMBER(s): [id number], ACCESSION NUMBER(s): [id number] History: sacral pain radiating to hips, unable to amb due to pain Comparison Study: CT CT AB PEL WO CON-NO ORAL OR IV on DOS: 01/09/25, CT CT AB PEL WITH IV CON ONLY on DOS: 09/30/24, CT CT AB PEL WO CON-NO ORAL OR IV on DOS: 09/19/24, CT CT AB PEL WO CON-NO ORAL OR IV on DOS: 12/12/23, CT CT AB PEL WO CON- NO ORAL OR IV on DOS: 12/30/22 Technique: Multidetector spiral CT of the pelvis was performed from iliac crests to pubic symphysis. No contrast administered. Radiation Dose : CT Dose: CTDI volume is 41.02 mGy. Dose-length product is 922.86 mGy*cm Findings: The bones are demineralized. No acute fracture or dislocation. No significant degenerative changes of the hips. Mild degenerative changes of the sacroiliac joint. Moderate right and severe left neural foraminal narrowing at L5 - S1 secondary to severe disc height loss and facet arthrosis. There is grade 1 anterolisthesis of L5 on S1 with uncovering of a calcified disc. At L4-L5, there is a posterior calcified disc osteophyte complex resulting in mild spinal canal narrowing. There is facet arthrosis which results in mild bilateral neural foraminal narrowing. At L3-L4, there is a posterior broad-based calcified disc osteophyte complex with facet arthrosis and ligamentum flavum infolding resulting in mod erate- severe spinal canal narrowing. Severe left and moderate right neural foraminal narrowing. IMPRESSION: No acute pelvic finding. Severely demineralized bones. Discogenic and spondylotic degenerative changes resulting in high-grade neural foraminal narrowing, notably on the left at L3-L4 and on the left at L5-S1. Correlate with radicular symptoms. ATED BY: DOMONIQUE MCMULLEN MD DICTATED DATE/TIME: 05/19/25 115 SIGNED BY: DOMONIQUE MCMULLEN MD SIGNED DATE/TIME: 05/19/251156 CC: ORDERING PHYSICIAN: JUANITO ALMANZA MD PROCEDURE(s): LS2CT - LS SPINE WO CONTRAST REASON: sacral pain radiating to hips, unable to amb due to pain ORDER NUMBER(s): [id number], ACCESSION NUMBER(s): [id number] EXAM: CT LS SPINE WO CONTRAST INDICATION: sacral pain radiating to hips, unable to amb due to pain COMPARISON: CT ABD PELVIS WO CONTRAST on DOS: 06/26/21 TECHNIQUE: Multiple axial CT images of the lumbar spine were obtained using bone algorithm. Axial and coronal reformatting was done. Bone and soft tissue windows were reviewed. Radiation Dose Information: CT Dose: CTDI volume is 41 mGy. Dose-length product is 2340 mGy*cm FINDINGS: No CT evidence of acute fracture or traumatic mal-alignment. The visualized paraspinal soft tissues are grossly unremarkable. T11 -12: Severe disc height loss is seen at this level. T12-L1: The disc at this level appears grossly normal. L1-2: The disc height at this level appears normal. L2-3: There is moderate disc height loss at this level. There is a mild to moderate partially calcified disc, this along with hypertrophied ligamentum flavum is causing moderate central canal stenosis. L3-4: There is grade 1/4 anterolisthesis present at this level. There is a mild to moderate partially calcified disc protrusion, this with hypertrophied ligamentum flavum is causing moderate to high-grade central canal stenosis. L4-5: Moderate disc height loss is seen at this level. There is a mild to moderate partially calcified central disc protrusion at this level, this is causing no significant central canal stenosis. L5-S1: Severe disc height loss is seen at this level. There is grade 1/4 anterolisthesis present. There is a moderate-sized partially calcified disc protrusion at this level, this does not appear to be causing significant central canal stenosis. IMPRESSION: 1. No acute fracture or dislocation. 2. Disc protrusions present at L3-4, L4-5 and L5-S1 as above. 3. Other degenerative changes as above ATED BY: GRIS BAKER MD DICTATED DATE/TIME: 05/19/25 120 SIGNED BY: GRIS BAKER MD SIGNED DATE/TIME: 05/19/25 1201 CC: SEPSIS Sepsis Screen Date sepsis recognized/suspect: May 19, 2025 Time Sepsis recognized/suspect: 1053 Recent Procedure: No On Antibiotic Therapy: No Respiratory Rate >20: No Heart Rate >90: No Temp<36 C (96.8 F) or >38.3 C: No SBP <90 or MAP <65 mmHG: No New Acute Mental Status Change: No Is the patient on CPAP, BIPAP,: No Physician Orders Urinalysis (05/19/25 11:12) Ls Spine Wo Contrast (05/19/25 11:12) Pelvis Wo Contrast (05/19/25 11:12) Admit (05/19/25 15:26) 2 Gm Sodium Diet (05/19/25 Dinner) Sodium Chloride 0.9% (05/19/25 15:30) Hydrocodone-Acet 5/325mg Tab ([place] 32 (05/19/25 15:30) Docusate Sodium Capsule (Colace Capsule) (05/19/25 15:30) Enoxaparin Sodium (Lovenox) (05/20/25 10:00) Complete Blood Count (05/20/25 04:00) Comprehensive Metabolic Panel (05/20/25 04:00) Pt Request For Service (05/19/25 15:26) Condition: Fair (05/19/25 15:26) Acetaminophen Tablet (Tylenol Tablet) (05/19/25 15:30) Bedrest With Bathroom Privileg (05/19/25 15:26) Consultdr. Steven Chen(Spine) (05/19/25 15:30) Atorvastatin (Lipitor) (05/20/25 10:00) Cholestyramine Powder (Questran Powder) (05/20/25 11:00) Levothyroxine Tablet (Synthroid Tablet) (05/20/25 07:00) Lisinopril Tablet (Zestril Tablet) (05/20/25 10:00) (Nf) Baclofen (05/19/25 22:00) (Nf) Empagliflozin (Jardiance) (05/20/25 10:00) (Nf) Hydrochlorothiazide (05/20/25 10:00) Ketorolac Injection (Toradol Injection) (05/19/25 15:45) Glucose Blood (Accu-Chek Comfort Curve T (05/19/25 17:00) Mild Sliding Scale (05/19/25 17:00) Dextrose 50% Syringe (05/19/25 15:45) Vital Signs Date Time Temp Pulse Resp B/P (MAP) Pulse Ox O2 Delivery O2 Flow Rate FiO2 05/19/25 12:09 64 16 95 Room Air 05/19/25 12:06 98.7 64 16 138/74 (95) 95 98.7 05/19/25 10:52 98.0 72 16 156/87 95 98.0 Laboratory Tests Test 05/19/25 12:00 White Blood Count 4.8 10^3/uL (4.4-10.8) Medications Medications Dose Ordered Sig/Dinora Route Start Time Stop Time Status Last Admin Dose Admin Acetaminophen/ Hydrocodone Bitart 2 tab ONCE ONCE PO 05/19/25 11:15 05/19/25 11:16 DC 05/19/25 12:02 2 TAB Assessment/Plan Assessment/Plan Generalized weakness likely due to lumbar pain--patient presents to ED with lumbar pain associated with bilateral hip pain progressively worse x3 days No history of injury or fall Unable to lift up either of her legs to walk around on her own due to pain and weakness despite normally using a walker to ambulate Patient takes ibuprofen, baclofen and Excedrin with no relief CT pelvic and lumbar spine performed in the ER [place] was given for pain with relief Admit to medical-surgical unit Reviewed CBC which is normal Reviewed BMP which is normal Reviewed CT pelvis and spine see report [place] for pain as needed Toradol IV push x1 now for pain Continue muscle relaxer as needed IV hydration Consult Dr. Black spine surgeon for evaluation and recommendation PT eval and treat Hypertension-controlled Continue antihypertensive agent Hyperlipidemia Continue atorvastatin as prescribed Type 2 DM Hold antidiabetic medication for now Regular insulin mild SS a.c. and HS Accu-Cheks per protocol 1800 ADA diet Hypothyroidism Continue Synthroid as prescribed Reconcile home medication Labs in a.m. DVT prophylaxis PUD prophylaxis Discussed plan of care with patient and daughter in which all questions concerns have been addressed Plan discussed with: Patient, Daughter My Orders Orders - LYNN ADEN [employer] Procedure Category Date Status Time Admit ADMIT 05/19/25 Transmitted 15:26 2 Gm Sodium Diet DIET 05/19/25 Transmitted Dinner Sodium Chloride 0.9% PHA 05/19/25 Logged 15:30 Hydrocodone-Acet PHA 05/19/25 Logged 5/325mg Tab ([place] 15:30 Docusate Sodium PHA 05/19/25 Logged Capsule (Colace 15:30 Enoxaparin Sodium PHA 05/20/25 Logged (Lovenox) 10:00 Complete Blood Count LAB 05/20/25 Verified 04:00 Comprehensive LAB 05/20/25 Verified Metabolic Panel 04:00 Pt Request For Service PT 05/19/25 Logged 15:26 Condition: Fair [place] 05/19/25 In Process 15:26 Acetaminophen Tablet PHA 05/19/25 Logged (Tylenol Tablet) 15:30 Bedrest With Bathroom [place] 05/19/25 In Process Privileg 15:[address] Harris CONS 05/19/25 Transmitted [place](Spine) 15:30 Atorvastatin (Lipitor) PHA 05/20/25 Logged 10:00 Cholestyramine Powder PHA 05/20/25 Logged (Questran Powder) 11:00 Levothyroxine Tablet PHA 05/20/25 Logged (Synthroid Tablet) 07:00 Lisinopril Tablet PHA 05/20/25 Logged (Zestril Tablet) 10:00 (Nf) Baclofen PHA 05/19/25 Logged 22:00 (Nf) Empagliflozin PHA 05/20/25 Logged (Jardiance) 10:00 (NF) PHA 05/20/25 Logged Hydrochlorothiazide 10:00 Ketorolac Injection PHA 05/19/25 Logged (Toradol Injection) 15:45 Glucose Blood PHA 05/19/25 Transmitted (Accu-Chek Comfort 17:00 Mild Sliding Scale PHA 05/19/25 Transmitted 17:00 Dextrose 50% Syringe PHA 05/19/25 Transmitted 15:45 Date of Service: May 19, 2025 Billing Provider: LYNN ADEN Common Visit Codes: [id number] INP/OBS CARE (HIGH) LYNN ADENP May 19, 2025 15:43
[2025-05-19] MEDS ORDERED: DEXTROSE (50%) 50ML SYRG IV PRN (15:45)
[2025-05-19] MEDS: InsuLIN REG 1unit/0.01ml Soln (100units/ml) SC SCH (17:00)
[2025-05-19] MEDS: ACCU-CHEK COMFORT CURVE STRIP VI SCH (17:11)
[2025-05-19] MEDS: SODIUM CHLORIDE 0.9% 1,000 ML IV SCH (17:18)
[2025-05-19 17:45] VITALS: PULSE 61; RESP 15; O2SAT 95
[2025-05-19] MEDS: KETOROLAC TROMETH 30 MG/ML 1ML VIAL IV ONE (18:05)
[2025-05-19 19:30] VITALS: PULSE 48; RESP 14; O2SAT 96
[2025-05-19] MEDS: BACLOFEN 5 MG PO SCH (22:44)
[2025-05-20] VITALS (10 sets, daily range): BP systolic 110–146; BP diastolic 60–82; PULSE 52–78; RESP 16–18; TEMP 97.5–98.3; O2SAT 92–98
[2025-05-20] MEDS: LEVOTHYROXINE SODIUM 50 MCG TAB PO SCH (06:08)
[2025-05-20 06:45] LABS: Hematocrit 38.1 % (36.0-46.0); Hemoglobin 13.0 g/dL (12.2-16.2); Mean Corpuscular Hemoglobin 34.4 pg (28.0-32.0); Mean Corpuscular Volume 100.6 fL (80.0-100.0); Nucleated Red Blood Cells % 0.1 %
[2025-05-20 06:55] LABS: Alanine Aminotransferase 10 U/L (7-40); Albumin 4.0 g/dL (3.2-4.8); Alkaline Phosphatase 100 U/L (46-116); Anion Gap 11 (5-15); BUN/Creatinine Ratio 16.7 (10.0-20.0); Blood Urea Nitrogen 12 mg/dL (9-23); Calcium 9.1 mg/dL (8.7-10.4); Carbon Dioxide 24 mmol/L (20-31); Glucose 97 mg/dL (74-106); Potassium 3.7 mmol/L (3.5-5.1); Sodium 142 mmol/L (136-145); Total Protein 6.2 g/dL (5.7-8.2)
[2025-05-20 06:56] LABS: Bilirubin, Total 0.6 mg/dL (0.2-1.0); Chloride 107 mmol/L (98-107)
[2025-05-20] MEDS: HYDROcodone-ACET 5/325MG TAB PO PRN (09:10)
[2025-05-20] MEDS: DOCUSATE SOD 100 MG CAP PO PRN (09:10)
[2025-05-20 09:45] LABS: Urine Protein, UAD 1+ (Negative)
[2025-05-20] MEDS: EMPAGLIFLOZIN 10 MG TAB PO SCH (09:47)
[2025-05-20] MEDS: ENOXAPARIN SOD 40 MG/0.4 ML SYRINGE SC SCH (09:48)
[2025-05-20] MEDS: ATORVASTATIN 20 MG TAB PO SCH (09:48)
[2025-05-20] MEDS: hydroCHLOROthiazide 25 MG TAB PO SCH (09:49)
[2025-05-20] MEDS: LISINOPRIL 20 MG TAB PO SCH (09:50)
[2025-05-20] MEDS ORDERED: CHOLESTYRAMINE 4 GM POWDER GT SCH (11:00)
--- NOTE | 2025-05-20 12:32 | DVH ---
MR lumbar spine HISTORY: lumbar pain TECHNIQUE: MR was performed with a surface coil at 1.5 T magnet. Sagittal, axial and coronal T1 and T 2-weighted images were obtained. Comparison: CT lumbar spine done 05/19/2025 FINDINGS: Lumbar vertebrae are normal in height and signal intensity. Mild rotatory levoscoliosis. At L1-2 no narrowing of the central canal and neural foramina L2-3 loss of disc height and signal intensity. 2 mm diffuse disc bulge effaces the thecal sac L3-4 loss of disc height and signal intensity. 3 mm anterolisthesis due to degenerative facet joint d isease. Effacement of the thecal sac by bulging disc with moderate narrowing of the central canal and slight narrowing of the neural foramina At L4-5 loss of disc height and signal intensity. 3 mm disc bulge effaces the thecal sac. Moderate na rrowing of the right neural foramen by shortened pedicles At L5-S1 8.5 mm anterolisthesis due to bilateral spondylolysis. There is moderate secondary narrowing of the neural foramina by bulging disc with possible effacement of the exiting L5 nerve roots Cord ends at T12-L1 and is normal in appearance IMPRESSION: 1. Multilevel degenerative disc disease is present. At L2-3, L3-4, L4-5 there is effacement of the th ecal sac by bulging disc 2. At L5-S1 there is a 8.5 mm anterolisthesis due to spondylolysis with secondary narrowing of the ne ural foramina by bulging disc with possible effacement of the exiting L5 nerve roots
--- NOTE | 2025-05-20 13:41 | DVHPN2 ---
Progress Note Date Seen: May 20, 2025 Medical Necessity Reason Pt with a Central, PICC or Fol: No Subjective Patient reports: No new complaints Review of Systems: HEENT:Normal, CVS:Normal, RESPIRATORY:Normal, GI:Normal, :Normal, MSK:Normal, NEURO:Normal Objective vital signs Vital Sign Date Time Temp Pulse Resp B/P (MAP) Pulse Ox O2 Delivery O2 Flow Rate FiO2 05/20/25 09:50 141/60 05/20/25 09:39 97.6 61 17 97 97.6 05/20/25 08:00 Room Air* 0 21 Total Intake and Output 05/19/25 05/19/25 05/20/25 15:00 23:00 07:00 Intake Total 240 ml 0 ml Balance 240 ml 0 ml medications Current Medications Medications Dose Ordered Sig/Dinora Route Start Time Stop Time Status Last Admin Dose Admin Acetaminophen/ Hydrocodone Bitart 1 tab Q4HP PRN PO 05/19/25 15:30 05/20/25 09:10 1 TAB Docusate Sodium 100 mg BIDPRN PRN PO 05/19/25 15:30 05/20/25 09:10 100 MG Enoxaparin Sodium 40 mg DAILY SC 05/20/25 10:00 05/20/25 09:48 40 MG Acetaminophen 650 mg Q6HP PRN PO 05/19/25 15:30 Atorvastatin Calcium 20 mg DAILY PO 05/20/25 10:00 05/20/25 09:48 20 MG Levothyroxine Sodium 75 mcg DAILY@0600 PO 05/20/25 06:00 05/20/25 06:08 75 MCG Lisinopril 20 mg DAILY PO 05/20/25 10:00 05/20/25 09:50 20 MG Patient Own Medication 5 mg HS PO 05/19/25 22:00 Empaglifozin 25 mg DAILY PO 05/20/25 10:00 05/20/25 09:47 25 MG Hydrochlorothiazide 12.5 mg DAILY PO 05/20/25 10:00 05/20/25 09:49 12.5 MG Diagnostic Test (Pha) 1 strip ACHS 05/19/25 17:00 05/20/25 11:37 1 STRIP Insulin Human Regular ACHS SC 05/19/25 17:00 05/19/25 22:01 3 UNITS Dextrose 50 ml UD PRN IV 05/19/25 15:45 Examination: GENERAL:Normal, HEENT:Normal, NECK:Normal, LUNGS:Normal, CVS:Normal, ABDOMEN:Normal, MSK:Normal, SKIN:Normal, NEURO:Normal, :Normal laboratory and microbiology Laboratory Tests 05/20/25 05:13 Test 05/20/25 05:13 Range/Units Serum Glucose 97 74-106 mg/dL Problem List/Assessment/Plan Problem List/Assessment/Plan #1 back pain with djd spine/weakness: dr Black to see #2 dm: ssi #3 htn #4 obesity advance care planning- full code- time spent 18 mins Plan discussed with: Patient Date of Service: May 20, 2025 Billing Provider: JASSON CHAMBERLAIN MD Common Visit Codes: [id number] INP/OBS CARE(HIGH) Secondary Visit Codes: [id number] CARE PLAN 30 MINUTES JASSON CHAMBERLAIN MD May 20, 2025 13:41
--- NOTE | 2025-05-20 14:40 | DVHINCON2 ---
Consultation - Surgical Date Seen: May 20, 2025 Referring Physician Referring Physician Attending Doctor: Lynn Aden Reason for Consultation Reason for Visit: Generalized weakness likely due to lumbar pain History of Present Illness History of Present Illness History of Present Illness This is a pleasant 79-year-old female who is in a wheelchair presented to the ED with chief complaint of lumbar pain associated with bilateral hip pain that has progressively gotten worse in the past three days. The patient relates that she has been unable to lift up either of her legs to walk around independently due to the progressive weakness despite normally being able to walk with a walker. The patient states that she has taken ibuprofen and Excedrin with no relief noted last dose being last night. The patient denied any recent injury or fall that may have caused this. The patient is concerned about her symptoms and would like to be further evaluated and treated. The patient will be admitted under hospitalist care to the medical-surgical unit. The patient denies fever, chills, headache, dizziness, shortness of breath, palpitation, chest pain, nausea, vomiting, abdominal pain, diarrhea, constipation and other associated symptoms. The plan has been discussed with the patient and daughter who is with her in which all questions concerns have been addressed. Past Medical/Surgical History Past Medical/Surgical History Cardiovascular: HTN, hyperipidemia Musculoskeletal: Other (Arthritis) Endocrine: Diabetes Past Medical History Colon cancer currently in remission Past Surgical History: Appendectomy, Cholecystectomy, Hysterectomy, Hernia Repair, Tonsillectomy Past Surgical History Thyroidectomy Colon resection Family and Social History Family and Social History Family History: Cancer, DM, Hypertension, Other (Heart disease) Smoke: No ALCOHOL: none Drugs: None Lives: with Family Domestic Violence: Neg Allergies and medications Allergies: Coded Allergies: NO KNOWN ALLERGIES (Unverified , 06/26/21) Home Meds Active Scripts Ondansetron HCl (Ondansetron) 4 Mg Tab, 4 MG PO TID PRN, #15 TAB Prov:ANDREA MORTONP 01/09/25 Nitrofurantoin Monohydrate Mac (Macrobid) 100 Mg Cap, 100 MG PO BID for 7 Days, #14 CAP Prov:ANDREA MORTONP 01/09/25 Pantoprazole Sodium Sesquihydr (Protonix) 40 Mg Tab, 40 MG PO DAILY, #30 TAB Prov:MALONE,RHIANNA D MD 09/30/24 Tamsulosin Hcl (Tamsulosin Hcl) 0.4 Mg Cap, 1 CAP PO DAILY, #30 CAP 0 Refills Prov:ANY KHAN MD 09/20/24 Baclofen (Baclofen) 5 Mg Tab, 5 MG PO HS for 4 Days, #4 TAB 0 Refills Prov:ANY KHAN MD 09/20/24 Levofloxacin Hemihydrate (LEVAQUIN 500 MG) 500 Mg Tab, 1 TAB PO DAILY for 7 Days, #7 TAB Prov:DOUGLAS TINOCO NP 12/16/23 Loperamide Hcl (Imodium) 2 Mg Cp, 2 MG PO PRN PRN for 7 Days, #14 CAP Prov:DOUGLAS TINOCO NP 12/16/23 Cholestyramine (QUESTRAN POWDER) 4 Gm Pw, 4 GM GT DAILY@11 for 7 Days, #7 POW Stop when BMs are regular Prov:DOUGLAS TINOCO NP 12/16/23 Pantoprazole Sodium Sesquihydr (Protonix) 40 Mg Tab, 40 MG PO BID for 30 Days, #60 TAB Prov:YEFRI BAÑUELOS MD 06/30/21 Reported Medications Levothyroxine Sodium (Levothyroxine Sodium) 50 Mcg Tab, 75 MCG PO QAM for 30 Days, MCG 09/20/24 Patients Own Medication (PATIENTS OWN MEDICATION) . PTS OWN MED-OBTAIN FROM PT AND SEND TO RX DRUG: FREQ: RX# EXP: DATE DISP: TECH: RPH: 09/20/24 Gabapentin (Gabapentin) 100 Mg Cap, 100 MG PO HS for 30 Days, MG 12/13/23 Lisinopril (Lisinopril) 20 Mg Tab, 1 TAB PO DAILY 12/12/23 Empagliflozin (Jardiance) 25 Mg Tab, 1 TAB PO DAILY 12/12/23 Atorvastatin Calcium (ATORVASTATIN CALCIUM) 20 Mg Tab, 1 TAB PO DAILY 12/12/23 Hydrochlorothiazide (Hydrochlorothiazide) 12.5 Mg Tab, 1 TAB PO DAILY 12/12/23 Metformin Hydrochloride (Metformin Hcl Er) 500 Mg Tab, 1 TAB PO BID 12/12/23 Fluticasone-Salmeterol (Advair Diskus 250/50) 1 Puff Ih, 1 PUFF INH BID PRN for SHORTNESS OF BREATH 06/29/21 Review of systems Review of Systems: MSK:Normal (patient is able to ambulate to restroom), NEURO:Abnormal (LBP) Examination Vital signs Imaging ORDERING PHYSICIAN: LYNN ADEN PROCEDURE(s): MSL - LUMBAR SPINE WO CONTRAST REASON: lumbar pain ORDER NUMBER(s): [id number], ACCESSION NUMBER(s): [id number] MR lumbar spine HISTORY: lumbar pain TECHNIQUE: MR was performed with a surface coil at 1.5 T magnet. Sagittal, axial and coronal T1 and T2-weighted images were obtained. Comparison: CT lumbar spine done 05/19/2025 FINDINGS: Lumbar vertebrae are normal in height and signal intensity. Mild rotatory levoscoliosis. At L1-2 no narrowing of the central canal and neural foramina L2-3 loss of disc height and signal intensity. 2 mm diffuse disc bulge effaces the thecal sac L3-4 loss of disc height and signal intensity. 3 mm anterolisthesis due to degenerative facet joint disease. Effacement of the thecal sac by bulging disc with moderate narrowing of the central canal and slight narrowing of the neural foramina At L4-5 loss of disc height and signal intensity. 3 mm disc bulge effaces the thecal sac. Moderate narrowing of the right neural foramen by shortened pedicles At L5-S1 8.5 mm anterolisthesis due to bilateral spondylolysis. There is moderate secondary narrowing of the neural foramina by bulging disc with possible effacement of the exiting L5 nerve roots Cord ends at T12-L1 and is normal in appearance IMPRESSION: 1. Multilevel degenerative disc disease is present. At L2-3, L3-4, L4-5 there is effacement of the thecal sac by bulging disc 2. At L5-S1 there is a 8.5 mm anterolisthesis due to spondylolysis with secondary narrowing of the neural foramina by bulging disc with possible effacement of the exiting L5 nerve roots RING PHYSICIAN: JUANITO ALMANZA MD PROCEDURE(s): LS2CT - LS SPINE WO CONTRAST REASON: sacral pain radiating to hips, unable to amb due to pain ORDER NUMBER(s): [id number], ACCESSION NUMBER(s): [id number] EXAM: CT LS SPINE WO CONTRAST INDICATION: sacral pain radiating to hips, unable to amb due to pain COMPARISON: CT ABD PELVIS WO CONTRAST on DOS: 06/26/21 TECHNIQUE: Multiple axial CT images of the lumbar spine were obtained using bone algorithm. Axial and coronal reformatting was done. Bone and soft tissue windows were reviewed. Radiation Dose Information: CT Dose: CTDI volume is 41 mGy. Dose-length product is 2340 mGy*cm FINDINGS: No CT evidence of acute fracture or traumatic mal-alignment. The visualized paraspinal soft tissues are grossly unremarkable. T11 -12: Severe disc height loss is seen at this level. T12-L1: The disc at this level appears grossly normal. L1-2: The disc height at this level appears normal. L2-3: There is moderate disc height loss at this level. There is a mild to moderate partially calcified disc, this along with hypertrophied ligamentum flavum is causing moderate central canal stenosis. L3-4: There is grade 1/4 anterolisthesis present at this level. There is a mild to moderate partially calcified disc protrusion, this with hypertrophied ligamentum flavum is causing moderate to high-grade central canal stenosis. L4-5: Moderate disc height loss is seen at this level. There is a mild to moderate partially calcified central disc protrusion at this level, this is causing no significant central canal stenosis. L5-S1: Severe disc height loss is seen at this level. There is grade 1/4 anterolisthesis present. There is a moderate-sized partially calcified disc protrusion at this level, this does not appear to be causing significant central canal stenosis. IMPRESSION: 1. No acute fracture or dislocation. 2. Disc protrusions present at L3-4, L4-5 and L5-S1 as above. 3. Other degenerative changes as above Vital Signs Date Time Temp Pulse Resp B/P (MAP) Pulse Ox O2 Delivery O2 Flow Rate FiO2 05/20/25 09:50 141/60 05/20/25 09:39 97.6 61 17 97 97.6 05/20/25 08:00 Room Air* 0 21 Medications Current Medications Medications (Trade) Dose Ordered Sig/Dinora Route PRN Reason Start Time Stop Time Status Last Admin Sodium Chloride 1,000 ml @ 60 mls/hr [id number] IV 05/19/25 15:30 05/20/25 13:37 DC 05/20/25 08:29 Acetaminophen/ Hydrocodone Bitart (Machias 5/325MG Tab) 1 tab Q4HP PRN PO MODERATE PAIN (4-6 PAIN SCALE) 05/19/25 15:30 05/20/25 09:10 Docusate Sodium (Colace Capsule) 100 mg BIDPRN PRN PO FOR CONSTIPATION 05/19/25 15:30 05/20/25 09:10 Enoxaparin Sodium (Lovenox) 40 mg DAILY SC 05/20/25 10:00 05/20/25 09:48 Acetaminophen (Tylenol Tablet) 650 mg Q6HP PRN PO PAIN SCALE 1-3 OR TEMP>100.4 05/19/25 15:30 Atorvastatin Calcium (Lipitor) 20 mg DAILY PO 05/20/25 10:00 05/20/25 09:48 Cholestyramine Resin (Questran Powder) 4 gm DAILY@11 GT 05/20/25 11:00 05/20/25 13:37 DC Levothyroxine Sodium (Synthroid Tablet) 75 mcg DAILY@0600 PO 05/20/25 06:00 05/20/25 06:08 Lisinopril (Zestril Tablet) 20 mg DAILY PO 05/20/25 10:00 05/20/25 09:50 Patient Own Medication 5 mg HS PO 05/19/25 22:00 Empaglifozin (Jardiance) 25 mg DAILY PO 05/20/25 10:00 05/20/25 09:47 Hydrochlorothiazide (hydroCHLOROthiazide TABLET) 12.5 mg DAILY PO 05/20/25 10:00 05/20/25 09:49 Diagnostic Test (Pha) (Accu-Chek Comfort Curve T) 1 strip ACHS 05/19/25 17:00 05/20/25 11:37 Insulin Human Regular (InsuLIN R) ACHS SC 05/19/25 17:00 05/19/25 22:01 Dextrose 50 ml UD PRN IV Blood Sugar LESS THAN 60 05/19/25 15:45 Laboratory Labs Test 05/20/25 11:33 05/20/25 09:20 05/20/25 05:13 Range/Units POC Glucose 130 H 70-106 mg/dl Urine Color Yellow Yellow Urine Clarity Hazy H Clear Urine pH 5.0 5.0-9.0 Urine Specific [place] 1.023 1.001-1.035 Urine Protein 1+ H Negative Urine Ketones Negative Negative Urine Blood Normal Negative /uL Urine Nitrite Negative Negative Urine Bilirubin Negative Negative Urine Urobilinogen Normal Negative mg/dL Urine Leukocyte Esterase 1+ Negative /uL Urine Glucose 4+ H Normal mg/dL White Blood Count 3.9 L 4.4-10.8 10^3/uL Red Blood Count 3.79 L 4.0-5.20 10^6/uL Hemoglobin 13.0 12.2-16.2 g/dL Hematocrit 38.1 36.0-46.0 % Mean Corpuscular Volume 100.6 #H 80.0-100.0 fL Mean Corpuscular Hemoglobin 34.4 H 28.0-32.0 pg Mean Corpuscular Hemoglobin Concent 34.2 32.0-36.0 g/dL Red Cell Distribution Width 13.4 11.8-14.3 % Platelet Count 153 140-450 10^3/uL Mean Platelet Volume 7.7 6.9-10.8 fL Neutrophils (%) (Auto) 68.7 37.0-80.0 % Lymphocytes (%) (Auto) 14.9 10.0-50.0 % Monocytes (%) (Auto) 14.0 H 0.0-12.0 % Eosinophils (%) (Auto) 1.8 0.0-7.0 % Basophils (%) (Auto) 0.6 0.0-2.0 % Neutrophils # (Auto) 2.7 1.6-8.6 10 ^3/uL Lymphocytes # (Auto) 0.6 0.4-5.4 10 ^3/uL Monocytes # (Auto) 0.6 0-1.3 10 ^3/uL Eosinophils # (Auto) 0.1 0-0.8 10 ^3/uL Basophils # (Auto) 0 0-0.2 10 ^3/uL Nucleated Red Blood Cells 0.1 % Sodium Level 142 136-145 mmol/L Potassium Level 3.7 3.5-5.1 mmol/L Chloride Level 107 98-107 mmol/L Carbon Dioxide Level 24 20-31 mmol/L Anion Gap 11 5-15 Blood Urea Nitrogen 12 9-23 mg/dL Creatinine 0.72 0.550-1.02 mg/dL Glomerular Filtration Rate Calc 86 >90 mL/min BUN/Creatinine Ratio 16.7 10.0-20.0 Serum Glucose 97 74-106 mg/dL Calcium Level 9.1 8.7-10.4 mg/dL Total Bilirubin 0.6 0.2-1.0 mg/dL Aspartate Amino Transferase (AST) 17 13-40 U/L Alanine Aminotransferase (ALT) 10 7-40 U/L Alkaline Phosphatase 100 46-116 U/L Total Protein 6.2 5.7-8.2 g/dL Albumin 4.0 3.2-4.8 g/dL Examination: GENERAL:Normal, HEENT:Normal, NECK:Normal, LUNGS:Normal, CVS:Normal, ABDOMEN:Normal, MSK:Normal (patient is able to ambulate BLE 5/5), SKIN:Normal, NEURO:Abnormal (LBP with rediation to BLE 4/5 strength), :Normal Problem List/Assessment/Plan Problems: (1) Lumbar stenosis with neurogenic claudication (2) Lumbosacral disc herniation (3) Neuroforaminal stenosis of lumbosacral spine (4) Anterolisthesis of lumbar spine Assessment and Plan 1. Multilevel degenerative disc disease is present. At L2-3, L3-4, L4-5 there is effacement of the thecal sac by bulging disc 2. At L5-S1 there is a 8.5 mm anterolisthesis due to spondylolysis with secondary narrowing of the neural foramina by bulging disc with possible effacement of the exiting L5 nerve roots Further care and management per admitting team's discretion Added Decadron 10 mg x 1 to help decrease inflammation, Flexeril 10 mg p.o. Q 8 hours for muscle spasms related to findings of degenerative disc and spondylolisthesis causing muscle spasms Patient is able to ambulate in room, encouraged mobilization as much as possible Encouraged patient to use oral pain medications over IV medications If We can get the patient comfortable, ambulating safely and the patient feels her pain is well managed in his able to do it herself then we will recommend outpatient therapy and follow up with spine surgeon for definitive care Physical therapy for strengthening, flexibility, and posture No barriers to discharge from a spine surgery perspective of the patient is able to ambulate safely, her pain is well controlled as well as for muscle spasms. Follow up with PCP for referral for spine surgery Call with tricia Leung [facility] Orthopa[facility] Spine Surgery nurse practitioner For Dr Hansa Black Patient was examined, chart reviewed, labs evaluated, and diagnostic studies and findings analyzed. Case was discussed with Dr. Steven Black who formulated the plan of care. This medical document was created using an electronic medical record system with [employer] dictation system. Although this document has been carefully reviewed, there might still be some phonetic and typographical errors. These areas are purely typographical due to imperfections of the software programs, and do not reflect any compromise in the patient's medical care. Plan discussed with Plan discussed with: Patient, Other (Yaritza Vauhgan) Visit Coding Surgery Date of Service if different f: May 20, 2025 Billing Provider: CARLOS LEUNG NP Surgery Visit Codes: 11062 - INP CONSULT <55 MIN CARLOS LEUNG NP May 20, 2025 14:40
--- NOTE | 2025-05-20 15:34 | DVH ---
CHEST RADIOGRAPH Indication: htn Technique: Single frontal view of the chest was obtained COMPARISON: XY CHEST XRAY 1 VIEW on DOS: 12/14/23, XY CHEST TWO VIEWS ROUTINE on DOS: 12/12/23, XY CHES T PORTABLE on DOS: 12/30/22, CHEST PORTABLE on DOS: 06/26/21 FINDINGS: Lines and Tubes: None Lungs: Left basilar subsegmental atelectasis Pleura: No effusion. No pneumothorax. Cardiomediastinal contours: Unremarkable Bones: Unremarkable IMPRESSION: Left basilar subsegmental atelectasis
[2025-05-20] MEDS: CYCLOBENZAPRINE HCL 10 MG TAB PO SCH (21:13)
[2025-05-21] VITALS (7 sets, daily range): BP systolic 94–123; BP diastolic 55–71; PULSE 52–74; RESP 16–18; TEMP 96.6–98.2; O2SAT 93–98
[2025-05-21 07:35] LABS: Chloride 105 mmol/L (98-107); Potassium 3.9 mmol/L (3.5-5.1); Sodium 142 mmol/L (136-145)
[2025-05-21 07:36] LABS: Anion Gap 10 (5-15); Calcium 9.9 mg/dL (8.7-10.4); Carbon Dioxide 27 mmol/L (20-31)
[2025-05-21 07:38] LABS: Hematocrit 38.6 % (36.0-46.0); Hemoglobin 13.5 g/dL (12.2-16.2); Mean Corpuscular Hemoglobin 34.2 pg (28.0-32.0); Mean Corpuscular Volume 97.6 fL (80.0-100.0); Nucleated Red Blood Cells % 0.0 %
[2025-05-21 07:40] LABS: INR 0.98 (0.9-1.15); Partial Thromboplastin Time 27.5 SEC (24.5-34.5); Prothrombin Time 10.4 sec (9.3-11.8)
[2025-05-21 07:41] LABS: BUN/Creatinine Ratio 20.0 (10.0-20.0); Blood Urea Nitrogen 16 mg/dL (9-23)
[2025-05-21 07:42] LABS: Glucose 124 mg/dL (74-106)
--- NOTE | 2025-05-21 13:21 | DVHPN2 ---
Progress Note Date Seen: May 21, 2025 Medical Necessity Reason Pt with a Central, PICC or Fol: No Subjective Patient reports: No new complaints Review of Systems: HEENT:Normal, CVS:Normal, RESPIRATORY:Normal, GI:Normal, :Normal, MSK:Normal, NEURO:Normal Objective vital signs Vital Sign Date Time Temp Pulse Resp B/P (MAP) Pulse Ox O2 Delivery O2 Flow Rate FiO2 05/21/25 12:54 96.6 55 18 101/64 (76) 95 96.6 05/21/25 08:10 Room Air* 0 21 Total Intake and Output 05/20/25 05/20/25 05/21/25 15:00 23:00 07:00 Intake Total 380 ml 300 ml Balance 380 ml 300 ml medications Current Medications Medications Dose Ordered Sig/Dinora Route Start Time Stop Time Status Last Admin Dose Admin Acetaminophen/ Hydrocodone Bitart 1 tab Q4HP PRN PO 05/19/25 15:30 05/21/25 12:14 1 TAB Docusate Sodium 100 mg BIDPRN PRN PO 05/19/25 15:30 05/20/25 09:10 100 MG Enoxaparin Sodium 40 mg DAILY SC 05/20/25 10:00 05/21/25 09:11 40 MG Acetaminophen 650 mg Q6HP PRN PO 05/19/25 15:30 Atorvastatin Calcium 20 mg DAILY PO 05/20/25 10:00 05/21/25 09:09 20 MG Levothyroxine Sodium 75 mcg DAILY@0600 PO 05/20/25 06:00 05/21/25 05:15 75 MCG Lisinopril 20 mg DAILY PO 05/20/25 10:00 05/20/25 09:50 20 MG Patient Own Medication 5 mg HS PO 05/19/25 22:00 Hold Empaglifozin 25 mg DAILY PO 05/20/25 10:00 05/21/25 09:08 25 MG Hydrochlorothiazide 12.5 mg DAILY PO 05/20/25 10:00 05/21/25 09:11 12.5 MG Diagnostic Test (Pha) 1 strip ACHS 05/19/25 17:00 05/21/25 12:17 1 STRIP Insulin Human Regular ACHS SC 05/19/25 17:00 05/21/25 12:16 2 UNITS Dextrose 50 ml UD PRN IV 05/19/25 15:45 Cyclobenzaprine HCl 10 mg TID PO 05/20/25 22:00 05/21/25 05:15 10 MG Examination: GENERAL:Normal, HEENT:Normal, NECK:Normal, LUNGS:Normal, CVS:Normal, ABDOMEN:Normal, MSK:Normal, SKIN:Normal, NEURO:Normal, :Normal laboratory and microbiology Laboratory Tests 05/21/25 06:24 Test 05/21/25 06:24 Range/Units Serum Glucose 124 H 74-106 mg/dL Microbiology Date/Time Source Procedure Growth Status 05/20/25 09:20 Voided Urine Urine Culture - Preliminary Resulted Problem List/Assessment/Plan Problem List/Assessment/Plan #1 back pain with djd spine/weakness: decadron, flexeril #2 dm: ssi #3 htn #4 obesity advance care planning- full code- time spent 18 mins Plan discussed with: Patient, Daughter My Orders My Orders Orders - JASSON CHAMBERLAIN MD Procedure Category Date Status Time Urine Bacterial REJI 05/20/25 In Process Culture 13:34 Chest Portable XY 05/20/25 Resulted 13:34 Date of Service: May 21, 2025 Billing Provider: JASSON CHAMBERLAIN MD Common Visit Codes: [id number] INP/OBS CARE(HIGH) JASSON CHAMBERLAIN MD May 21, 2025 13:21
[2025-05-22 01:00] VITALS: BP 97/58; PULSE 57; RESP 18; TEMP 97.6; O2SAT 95
[2025-05-22 05:00] VITALS: BP 103/59; PULSE 64; RESP 17; TEMP 97.8; O2SAT 92
[2025-05-22 08:00] VITALS: PULSE 57; RESP 17; O2SAT 98
[2025-05-22 09:00] VITALS: BP 104/74; PULSE 57; RESP 17; TEMP 97.4; O2SAT 98
[2025-05-22 13:00] VITALS: BP 117/61; PULSE 60; RESP 17; TEMP 97.6; O2SAT 93
--- NOTE | 2025-05-22 13:40 | DVHDS2 ---
Discharge Summary Date of Admission May 19, 2025 at 15:26 Date of Discharge: May 22, 2025 Labs/Diagnostic Data: Laboratory Results Test 05/22/25 11:58 05/21/25 06:24 05/20/25 09:20 05/20/25 05:13 POC Glucose 133 mg/dl (70-106) White Blood Count 5.6 10^3/uL (4.4-10.8) Red Blood Count 3.95 10^6/uL (4.0-5.20) Hemoglobin 13.5 g/dL (12.2-16.2) Hematocrit 38.6 % (36.0-46.0) Mean Corpuscular Volume 97.6 fL (80.0-100.0) Mean Corpuscular Hemoglobin 34.2 pg (28.0-32.0) Mean Corpuscular Hemoglobin Concent 35.0 g/dL (32.0-36.0) Red Cell Distribution Width 13.5 % (11.8-14.3) Platelet Count 177 10^3/uL (140-450) Mean Platelet Volume 7.7 fL (6.9-10.8) Neutrophils (%) (Auto) 88.0 % (37.0-80.0) Lymphocytes (%) (Auto) 7.1 % (10.0-50.0) Monocytes (%) (Auto) 4.8 % (0.0-12.0) Eosinophils (%) (Auto) 0.0 % (0.0-7.0) Basophils (%) (Auto) 0.1 % (0.0-2.0) Neutrophils # (Auto) 4.9 10 ^3/uL (1.6-8.6) Lymphocytes # (Auto) 0.4 10 ^3/uL (0.4-5.4) Monocytes # (Auto) 0.3 10 ^3/uL (0-1.3) Eosinophils # (Auto) 0 10 ^3/uL (0-0.8) Basophils # (Auto) 0 10 ^3/uL (0-0.2) Nucleated Red Blood Cells 0.0 % Prothrombin Time 10.4 sec (9.3-11.8) Prothrombin Time INR 0.98 (0.9-1.15) Activated Partial Thromboplast Time 27.5 SEC (24.5-34.5) Sodium Level 142 mmol/L (136-145) Potassium Level 3.9 mmol/L (3.5-5.1) Chloride Level 105 mmol/L (98-107) Carbon Dioxide Level 27 mmol/L (20-31) Anion Gap 10 (5-15) Blood Urea Nitrogen 16 mg/dL (9-23) Creatinine 0.80 mg/dL (0.550-1.02) Glomerular Filtration Rate Calc 75 mL/min (>90) BUN/Creatinine Ratio 20.0 (10.0-20.0) Serum Glucose 124 mg/dL (74-106) Hemoglobin A1c 6.8 % A1C (<5.7) Calcium Level 9.9 mg/dL (8.7-10.4) Vitamin B12 Level 377 pg/mL (211-911) Thyroid Stimulating Hormone (TSH) 3.72 uIU/mL (0.55-4.78) Urine Color Yellow (Yellow) Urine Clarity Hazy (Clear) Urine pH 5.0 (5.0-9.0) Urine Specific [place] 1.023 (1.001-1.035) Urine Protein 1+ (Negative) Urine Ketones Negative (Negative) Urine Blood Normal /uL (Negative) Urine Nitrite Negative (Negative) Urine Bilirubin Negative (Negative) Urine Urobilinogen Normal mg/dL (Negative) Urine Leukocyte Esterase 1+ /uL (Negative) Urine Glucose 4+ mg/dL (Normal) Total Bilirubin 0.6 mg/dL (0.2-1.0) Aspartate Amino Transferase (AST) 17 U/L (13-40) Alanine Aminotransferase (ALT) 10 U/L (7-40) Alkaline Phosphatase 100 U/L (46-116) Total Protein 6.2 g/dL (5.7-8.2) Albumin 4.0 g/dL (3.2-4.8) Other Laboratory Tests 05/21/25 06:24 Brief Hx & Hospital Course: see dictated note Condition at Discharge: Fair Final Diagnosis/Problems List back pain Discharge Disposition: Home Discharge Instruct/Medications Diet: Cardiac 2g Na,low cholest Activity: No Restrictions, As Tolerated Follow Up/Referral: fu with pcp/ortho Medications: resume home meds script to pharmacy Scheduled Atorvastatin Calcium (Atorvastatin Calcium), 1 TAB PO DAILY, (Reported) Baclofen (Baclofen), 5 MG PO HS Cholestyramine (Questran Powder), 4 GM GT DAILY@11 Empagliflozin (Jardiance), 1 TAB PO DAILY, (Reported) Gabapentin (Gabapentin), 100 MG PO HS, (Reported) Hydrochlorothiazide (Hydrochlorothiazide), 1 TAB PO DAILY, (Reported) Levofloxacin Hemihydrate (Levaquin 500 Mg), 1 TAB PO DAILY Levothyroxine Sodium (Levothyroxine Sodium), 75 MCG PO QAM, (Reported) Lisinopril (Lisinopril), 1 TAB PO DAILY, (Reported) Metformin Hydrochloride (Metformin Hcl Er), 1 TAB PO BID, (Reported) Nitrofurantoin Monohydrate Mac (Macrobid), 100 MG PO BID Pantoprazole Sodium Sesquihydr (Protonix), 40 MG PO BID Pantoprazole Sodium Sesquihydr (Protonix), 40 MG PO DAILY Tamsulosin Hcl (Tamsulosin Hcl), 1 CAP PO DAILY Scheduled PRN Fluticasone-Salmeterol (Advair Diskus 250/50), 1 PUFF INH BID PRN for SHORTNESS OF BREATH, (Reported) Loperamide Hcl (Imodium), 2 MG PO PRN PRN Ondansetron HCl (Ondansetron), 4 MG PO TID PRN Miscellaneous Medications Patients Own Medication (Patients Own Medication), (Reported) Discharge Statement: "Patient was advised to return to the ER or call 911 if any headaches, dizziness, shortness of breath, chest pain, abdominal pain, bleeding, fevers, or worsening of medical condition. Patient was counseled about treatment plan, medications, possible side effects, patientverbalized understanding. All questions were answered to the best of my ability. This discharge took greater then 30 minutes in planning, reviewing documentation, counseling the patient, and discussing with other team members." ASSESSMENT ASSESSMENT Assessment back pain Date of Service: May 22, 2025 Billing Provider: JASSON CHAMBERLAIN MD Common Visit Codes: [id number] DISCH DAY >30min JASSON CHAMBERLAIN MD May 22, 2025 13:40
--- NOTE | 2025-05-22 13:55 | DVHDS ---
DATE OF DISCHARGE: 05/22/2025 The patient is a 79-year-old lady who was admitted with history of bilateral hip pain and back pain and has history of hypertension, hyperlipidemia, and diabetes. HOSPITAL COURSE: The patient had a lumbar spine MRI that showed multiple level DJD with effacement of the thecal sac and bulging disk. The patient also had a pelvic CT that showed severely demineralized bone. The patient was seen in consult by Dr. Black. The patient at this time did not wish any surgery. She was given Decadron along with Flexeril with improvement in symptoms. The patient will now be discharged home to be on Flexeril p.r.n. for muscle spasms and [place] p.r.n. for pain. She will follow up with primary and her Orthopedic. The patient will also have home physical therapy. FINAL DIAGNOSES: * Back pain with DJD with weakness. * Diabetes mellitus. * Hypertension. * Obesity. Time spent in discharge planning and review of plan with the patient and nursing was 38 minutes. MD ALEXSANDER Cleary/JOSÉ LUIS TID: [id number] RECEIPT: [id number]
[2025-05-22] MEDS ORDERED: CYCL-839 PO (14:39)
[2025-05-22] MEDS ORDERED: HYDR1TAB97 PO (14:39)
== END 2025-05-22 17:49 | disposition home or self-care (01) | DRG 552 ==
LOC: ER 10:50 → OVERFLOW 15:26 → WEST WING 23:47
PROVIDERS: ADMIT Internal Medicine; ATTEND Internal Medicine
DX: M51.369 Other intervertebral disc degeneration, lumbar region without mention of lumbar back pain or lower extremity pain (principal); M48.062 Spinal stenosis, lumbar region with neurogenic claudication; I10 Essential (primary) hypertension; E11.9 Type 2 diabetes mellitus without complications; M51.27 Other intervertebral disc displacement, lumbosacral region; E78.5 Hyperlipidemia, unspecified; E89.0 Postprocedural hypothyroidism; E66.9 Obesity, unspecified; Z68.34 Body mass index [BMI] 34.0-34.9, adult; M43.16 Spondylolisthesis, lumbar region; M48.07 Spinal stenosis, lumbosacral region; Z82.49 Family history of ischemic heart disease and other diseases of the circulatory system; Z83.3 Family history of diabetes mellitus; Z85.038 Personal history of other malignant neoplasm of large intestine; Z87.442 Personal history of urinary calculi; Z90.710 Acquired absence of both cervix and uterus; Z90.49 Acquired absence of other specified parts of digestive tract; Z79.899 Other long term (current) drug therapy
CPT/HCPCS: 36415; 71045; 72131; 72148; 72192; 80048; 80053; 81003; 82607; 82962; 83036; 84443; 85025; 85610; 85730; 87086; 96361; 96374; 97110; 97116; 97163; G0378; J1100; J1815; J1885